=== PATIENT | female | born 1960 | race African-American/Black ===

== ENCOUNTER 2017-08-06 10:15 | Emergency (ER) | payer MEDICAID, OTHER ==
[~2017-08-06] VITALS: Ht 172.7 cm; Wt 56.7 kg
--- NOTE | 2017-08-06 10:21 | Emergency Room Report ---
History of Present Illness General Chief Complaint: Syncope Source: Patient, EMS Present Illness HPI The patient jumped up on her kitchen sink to urinate because of problems with plumbing. She passed out and hit the right side of her head. There is bleeding from her face. Some time elapsed before she called for paramedics. She watched a movie in between. She went and saw herself in the mirror and saw the cut on her face and became anxious. She then called paramedics. Paramedics performed orthostatic vital signs which were negative. The patient denies passing out before. Pain in face is either denied or 5/10 and sharp, not radiating. No change in vision. Was evaluated by PMD last week with labs. They had problems drawing her blood. She does not know the results. Scheduled to have wisdom teeth removed. Stressed about this. She denies psychiatric issues. No fevers, chills, NVD. She did not eat this morning. No change in bowels, dysuria. She states tetanus UTD. She is treated for chronic pain from arthritis. Allergies: Coded Allergies: No Known Allergies (Unverified , 08/06/17) Patient History Past Medical History: see triage record Social History: Denies: smoking, alcohol use, drug use Social History Narrative at home "mansion" but needing work Last Menstrual Period: na Reviewed Nursing Documentation: PMH: Agreed, PSxH: Agreed Nursing Documentation-PMH Past Medical History: No History, Except For Review of Systems All Other Systems: negative except mentioned in HPI Physical Exam Vital Signs Date Time Temp Pulse Resp B/P (MAP) Pulse Ox O2 Delivery O2 Flow Rate FiO2 08/06/17 10:09 98.8 74 14 122/84 98 Room Air Sp02 EP Interpretation: reviewed, normal General Appearance: well appearing, no apparent distress, GCS 15 Head: normocephalic, other - 2.5 cm lac R eyebrow Eyes: bilateral eye normal inspection, bilateral eye PERRL, bilateral eye EOMI ENT: normal pharynx, moist mucus membranes - no lingual macerations Neck: full range of motion, no meningismus, no bony tend Respiratory: chest non-tender, lungs clear, normal breath sounds Cardiovascular #1: regular rate, rhythm Cardiovascular #2: 2+ radial (R) Gastrointestinal: normal inspection, normal bowel sounds, non tender, no mass, non-distended Musculoskeletal: back normal, gait/station normal, normal range of motion Neurologic: alert, oriented x3, registered nurse obstetrics III-XII nml as tested, motor strength/tone normal, DTRs symmetric, sensory intact, cerebellar normal, normal gait, speech normal Psychiatric: no suicidal/homicidal ideation, other - strange affect Skin: warm/dry, laceration - deep through eyebrow, into muscle Procedures Laceration/Wound Repair Laceration/Wound Repair : Consent: Verbal Wound Location: face Wound's Depth, Shape: into muscle, linear Wound Length (cm): 3 Wound Explored: clean Betadine Prep?: Yes Anesthesia: Lidocaine w/ Epi Wound Debrided: None Wound Repaired With: sutures Suture Size/Type: 6:0 Layer Closure?: Yes Deep Layer Suture Size/Type: 6:0, other - vicryl Sterile Dressing Applied?: Yes Patient Tolerated: Well Complications: None Progress After prep, anesthetic, wound irrigated. Muscle layer approximated. Irrigated. Subcuticular approximated. Irrigated. Dermal layer closed with cosmetic approximation and alignment of eyebrow. Parvin well. Medical Decision Making Diagnostic Impression: Primary Impression: Syncope Qualified Codes: R55 - Syncope and collapse Additional Impressions: Complex right eyebrow laceration repair UTI (urinary tract infection) Qualified Codes: N30.00 - Acute cystitis without hematuria ER Course Patient with syncope and R eyebrow laceration. DDX: arrhythmia, vasovagal, AMI amongst others. Emergent evaluation with CT, EKG, CXR and labs. She will need sutures. She denies pain at this time. EKG no injury, CXR asthenia, labs unremarkable except for UTI. Patient started on macrobid. Sutured - complex laceration and cosmetic repair. Strange affect, but not delusional or SI. The patient is refusing admission. She states she needs to see her chronic pain doctor. She understands the seriousness of being observed for unknown cause for syncope. I told her that there is a risk of her due to arrhythmia or heart attack. She understands this and is insisting on going home. Patient discharged, improved. Vital stable. Laboratory Tests Test 08/06/17 10:38 08/06/17 11:23 08/06/17 14:23 White Blood Count 7.1 K/UL (4.8-10.8) Red Blood Count 4.85 M/UL (4.20-5.40) Hemoglobin 13.8 G/DL (12.0-16.0) Hematocrit 44.8 % (37.0-47.0) Mean Corpuscular Volume 92 FL (80-99) Mean Corpuscular Hemoglobin 28.4 PG (27.0-31.0) Mean Corpuscular Hemoglobin Concent 30.8 G/DL (32.0-36.0) L Red Cell Distribution Width 14.3 % (11.6-14.8) Platelet Count 320 K/UL (150-450) Mean Platelet Volume 6.7 FL (6.5-10.1) Neutrophils (%) (Auto) 60.7 % (45.0-75.0) Lymphocytes (%) (Auto) 30.3 % (20.0-45.0) Monocytes (%) (Auto) 6.6 % (1.0-10.0) Eosinophils (%) (Auto) 1.1 % (0.0-3.0) Basophils (%) (Auto) 1.3 % (0.0-2.0) Prothrombin Time 10.3 SEC (9.30-11.50) Prothrombin Time INR 1.0 (0.9-1.1) PTT 25 SEC (23-33) Sodium Level 144 mEQ/L (135-145) Potassium Level 4.0 mEQ/L (3.4-4.9) Chloride Level 103 mEQ/L (98-107) Carbon Dioxide Level 25 mEQ/L (20-30) Anion Gap 16 (5-15) H Blood Urea Nitrogen 17 mg/dL (7-23) Creatinine 0.8 mg/dL (0.5-0.9) Estimate Glomerular Filtration Rate > 60 mL/min (>60) Glucose Level 74 mg/dL (74-106) Calcium Level 9.7 mg/dL (8.6-10.2) Total Bilirubin 0.3 mg/dL (0.0-1.2) Aspartate Amino Transferase (AST) 27 U/L (5-40) Alanine Aminotransferase (ALT) 13 U/L (3-33) Alkaline Phosphatase 83 U/L (35-104) Total Creatine Kinase 193 U/L (26-140) H Troponin I < 0.30 ng/mL (<=0.30) Pro-B-Type Natriuretic Peptide 13 pg/mL (0-125) Total Protein 8.1 g/dL (6.6-8.7) Albumin 5.0 g/dL (3.5-5.2) Globulin 3.1 g/dL Albumin/Globulin Ratio 1.6 (1.0-2.7) Urine Color Yellow Urine Appearance Cloudy Urine pH 5 (4.5-8.0) Urine Specific [place] 1.025 (1.005-1.035) Urine Protein 1+ (NEGATIVE) H Urine Glucose (UA) Negative (NEGATIVE) Urine Ketones 4+ (NEGATIVE) H Urine Occult Blood 1+ (NEGATIVE) H Urine Nitrite Positive (NEGATIVE) H Urine Bilirubin Negative (NEGATIVE) Urine Urobilinogen Normal MG/DL (0.0-1.0) Urine Leukocyte Esterase 3+ (NEGATIVE) H Urine RBC 5-10 /HPF (0 - 2) H Urine WBC 20-30 /HPF (0 - 2) H Urine Squamous Epithelial Cells Moderate /LPF (NONE/OCC) H Urine Bacteria Many /HPF (NONE) H Urine Opiates Screen Negative (NEGATIVE) Urine Barbiturates Screen Negative (NEGATIVE) Phencyclidine (PCP) Screen Negative (NEGATIVE) Urine Amphetamines Screen Negative (NEGATIVE) Urine Benzodiazepines Screen Negative (NEGATIVE) Urine Cocaine Screen Positive (NEGATIVE) H Urine Marijuana (THC) Screen Negative (NEGATIVE) EKG Diagnostic Results Rate: normal Rhythm: NSR ST Segments: no acute changes Rhythm Strip Diag. Results EP Interpretation: yes Rhythm: NSR, no PVC's, no ectopy Chest X-Ray Diagnostic Results Chest X-Ray Diagnostic Results : Chest X-Ray Ordered: Yes # of Views/Limited/Complete: 1 View Indication: Other EP Interpretation: Yes Interpretation: no consolidation, no effusion, no pneumothorax Impression: No acute disease Electronically Signed by: Ilir Stokes MD CT/MRI/US Diagnostic Results CT/MRI/US Diagnostic Results : Imaging Test Ordered: head Impression no bleed Last Vital Signs Date Time Temp Pulse Resp B/P (MAP) Pulse Ox O2 Delivery O2 Flow Rate FiO2 08/06/17 16:00 70 17 125/65 99 Room Air 08/06/17 14:30 98.3 Status: improved Disposition: HOME, SELF-CARE - refusal of admission - risks explained to patient of leaving Condition: Improved Scripts Bacitracin (Bacitracin) 28.4 Gm Oint...g. 1 APPLIC TOPIC BID, #10 GM Prov: Ilir Stokes M.D. 08/06/17 Nitrofurantoin Monohyd/M-Cryst* (MACROBID 100 MG*) 100 Mg Capsule 100 MG ORAL EVERY 12 HOURS, #14 CAP Prov: Ilir Stokes M.D. 08/06/17 Ilir Stokes M.D. Aug 06, 2017 10:21
[2017-08-06] MEDS ORDERED: Bacitracin Oint UD TOPIC ONE (10:30)
[2017-08-06] MEDS ORDERED: Lidocaine 1% 10mg/ml/Epi 0.005mg/ml 30ml vial INJ ONE (10:30)
[2017-08-06 10:56] LABS: BASOPHILS % (AUTO) 1.3 % (0.0-2.0); EOSINOPHILS % (AUTO) 1.1 % (0.0-3.0); LYMPHOCYTES % (AUTO) 30.3 % (20.0-45.0); MEAN CORPUSCULAR HEMOGLOBIN 28.4 PG (27.0-31.0); MEAN CORPUSCULAR HGB CONC 30.8 G/DL (32.0-36.0); MEAN CORPUSCULAR VOLUME 92 FL (80-99); MEAN PLATELET VOLUME 6.7 FL (6.5-10.1); MONOCYTES % (AUTO) 6.6 % (1.0-10.0); NEUTROPHILS % (AUTO) 60.7 % (45.0-75.0); PLATELET COUNT 320 K/UL (150-450); RED BLOOD COUNT 4.85 M/UL (4.20-5.40); RED CELL DISTRIBUTION WIDTH 14.3 % (11.6-14.8); WHITE BLOOD COUNT 7.1 K/UL (4.8-10.8)
--- NOTE | 2017-08-06 11:00 | Diagnostic Imaging Report ---
Indication: Trauma Comparison: None Technique: Contiguous helical CT images through the brain was performed without intravenous contrast. Axial, coronal and sagittal reconstructions were reformatted. CT dose: Total DLP 1245 mGycm, CTDI volume 70.4 mGy Findings: There is no acute intracranial hemorrhage or infarct. No mass, mass effect or midline shift is identified. Ventricles and sulci are within normal limits. No extra-axial fluid collections are seen. Bony calvarium is intact. Mastoid air cells and visualized paranasal sinuses are clear. Impression: No acute intracranial abnormalities. The CT scanner at [facility] is accredited by the [employer] and the scans are performed using protocols designed to limit radiation exposure to as low as reasonably achievable to attain images of sufficient resolution adequate for diagnostic evaluation.
--- NOTE | 2017-08-06 11:07 | Diagnostic Imaging Report ---
Indication: SYNCOPE Comparison: None Findings: Single view of the chest shows a normal cardiomediastinal silhouette. Pulmonary vasculature is normal. Lung are clear. Soft tissues and osseous structures are within normal limits. Impression: Normal chest
[2017-08-06 12:00] LABS: PROTHROMBIN TIME 10.3 SEC (9.30-11.50)
[2017-08-06 12:10] LABS: ALANINE AMINOTRANSFERASE 13 U/L (3-33); ALBUMIN/GLOBULIN RATIO 1.6 (1.0-2.7); ANION GAP 16 (5-15); ASPARTATE AMINO TRANSFERASE 27 U/L (5-40); CALCIUM 9.7 mg/dL (8.6-10.2); CARBON DIOXIDE 25 mEQ/L (20-30); CHLORIDE 103 mEQ/L (98-107); CREATININE 0.8 mg/dL (0.5-0.9); GLOMERULAR FILTRATION RATE > 60 mL/min (>60); HEMOLYSIS 2; SODIUM 144 mEQ/L (135-145); TOTAL PROTEIN 8.1 g/dL (6.6-8.7); TROPONIN I < 0.30 ng/mL (<=0.30)
[2017-08-06 12:25] VITALS: BP 121/62
[2017-08-06 14:30] VITALS: BP 118/59
[2017-08-06 14:51] LABS: APPEARANCE,URINE CLOUDY; KETONES,URINE 4+ (NEGATIVE); LEUKOCYTE ESTERASE ,URINE 3+ (NEGATIVE); NITRITE,URINE POSITIVE (NEGATIVE); PH,URINE 5 (4.5-8.0); PROTEIN,URINE 1+ (NEGATIVE); UROBILINOGEN,URINE NORMAL MG/DL (0.0-1.0)
[2017-08-06 15:09] LABS: WBC,URINE 20-30 /HPF (0 - 2)
[2017-08-06 15:10] LABS: BACTERIA,URINE MANY /HPF; SQUAMOUS EPITHELIAL CELL,UR MODERATE /LPF (NONE/OCC)
[2017-08-06] MEDS ORDERED: BACITRACIN15 GM TOPIC (15:41)
[2017-08-06] MEDS ORDERED: NITROFURANTOIN100 M2 ORAL (15:41)
[2017-08-06 16:00] VITALS: BP 125/65
--- NOTE | 2017-08-07 19:16 | Cardiology Report ---
APPROVED REPORT EKG Measurement Heart [id number] Normal sinus rhythm Possible Left atrial enlargement Prolonged QT Abnormal ECG
== END 2017-08-06 17:21 | disposition home or self-care (01) ==
LOC: EDBD 10:15 → EMR 10:27
DX: R55 Syncope and collapse (principal); S01.111A Laceration without foreign body of right eyelid and periocular area, initial encounter; W19.XXXA Unspecified fall, initial encounter; Y92.89 Other specified places as the place of occurrence of the external cause; N39.0 Urinary tract infection, site not specified
CPT/HCPCS: 13131; 36415; 70450; 71010; 80053; 80300; 81003; 82550; 83880; 84484; 85025; 85610; 85730; 87086; 87181; 93005; 96360; 99284; Z7502

== ENCOUNTER 2017-08-20 10:01 | Emergency (ER) | payer OTHER ==
[~2017-08-20] VITALS: Ht 172.7 cm; Wt 56.7 kg
[~2017-08-20 10:01] MED LIST: BACITRACIN15 GM TOPIC; NITROFURANTOIN100 M2 ORAL
[2017-08-20 10:12] VITALS: BP 115/85
--- NOTE | 2017-08-20 10:47 | Emergency Room Report ---
History of Present Illness General Chief Complaint: Wound Recheck/Suture Removal Source: Patient, Medical Record Present Illness HPI Patient presents for evaluation of the right facial stitches that were placed approximately 2 weeks ago Patient denies any headache denies any chest pain or short of breath She feels that the area is feeling better and denies any redness or discharge Allergies: Coded Allergies: No Known Allergies (Unverified , 08/06/17) Patient History Past Medical History: see triage record Pertinent Family History: none Reviewed Nursing Documentation: PMH: Agreed, PSxH: Agreed Nursing Documentation-PMH Past Medical History: No History, Except For Review of Systems All Other Systems: negative except mentioned in HPI Physical Exam Vital Signs Date Time Temp Pulse Resp B/P (MAP) Pulse Ox O2 Delivery O2 Flow Rate FiO2 08/20/17 10:12 98.2 77 14 115/85 98 Room Air Sp02 EP Interpretation: reviewed, normal General Appearance: well appearing, no apparent distress Head: normocephalic, atraumatic Eyes: bilateral eye PERRL, bilateral eye EOMI ENT: hearing grossly normal, normal pharynx Neck: full range of motion Respiratory: lungs clear Cardiovascular #1: regular rate, rhythm Gastrointestinal: non tender, soft Musculoskeletal: normal inspection Neurologic: alert, oriented x3, responsive Skin: other - Sutures in place in the right lateral eyebrow area, the area appears to be healing well no signs of any dehiscence mild ecchymosis persisted in the lower eyelid, Lymphatic: no adenopathy Medical Decision Making Diagnostic Impression: Primary Impression: Encounter for removal of sutures ER Course The area appears to be healing well Sutures appear to be ready to be removed In the appropriate fashion they interrupted sutures were removed without any dehiscence the patient tolerated well And stable for close followup Last Vital Signs Date Time Temp Pulse Resp B/P (MAP) Pulse Ox O2 Delivery O2 Flow Rate FiO2 08/20/17 10:12 98.2 77 14 115/85 98 Room Air Status: improved Disposition: HOME, SELF-CARE Condition: Improved Referrals: NIESHA FARRAR,REFERRING (PCP) Patient Instructions: Wound Check, Suture Removal, Care After Additional Instructions: Patient is provided with the discharge instructions notified to follow up with primary doctor in the next 2-3 days otherwise return to the er with any worsening symptoms. Please note that this report is being documented using [employer] technology. This can lead to erroneous entry secondary to incorrect interpretation by the dictating instrument. SAM IBRAHIM D.O. Aug 20, 2017 10:47
[2017-08-20 11:15] VITALS: BP 115/85
== END 2017-08-20 10:48 | disposition home or self-care (01) ==
LOC: EMR 10:16
DX: Z48.02 Encounter for removal of sutures (principal)
CPT/HCPCS: 99281

== ENCOUNTER 2018-09-10 15:02 | Emergency (ER) | payer OTHER ==
[~2018-09-10] VITALS: Ht 172.7 cm; Wt 55.8 kg
[2018-09-10] MEDS ORDERED: Acetaminophen 500mg (ES) tab ORAL ONE (15:30)
[2018-09-10] MEDS ORDERED: Tetanus/Diptheria/Pertussis Vaccine 0.5ml Syr IM ONE (15:30)
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
[2018-09-10 15:49] VITALS: BP 121/82
[2018-09-10] MEDS ORDERED: NKM (15:55)
--- NOTE | 2018-09-10 16:27 | Diagnostic Imaging Report ---
Indication: Headache Technique: Contiguous 5 mm thick transaxial imaging of the head obtained in a Siemens Sensation [address] scanner. Soft tissue and bone windows generated. Automatic Exposure Control was utilized. Total Dose length Product (DLP): 1906.[address] Dose Index Volume (CTDIvol): 70.38,28.19 mGy Comparison: 08/06/2017 Findings: There is mild prominence of the ventricles, basal cisterns, and cerebral sulci consistent with atrophy. Mild, nonspecific, white matter hypoattenuation is noted throughout the brain consistent with chronic small vessel disease. There is no midline shift, edema, acute hemorrhage, mass effect, or abnormal extra-axial fluid collections. Bones and extra osseous soft tissues are unremarkable. Impression: No acute intracranial bleed, mass effect or edema. Mild atrophy of the brain. Nonspecific white matter hypoattenuation probably due to chronic small vessel disease. The CT scanner at [facility] is accredited by the [employer] and the scans are performed using dose optimization techniques as appropriate to a performed exam including Automatic Exposure control.
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
[2018-09-10] MEDS ORDERED: Norco 5mg/325mg tab ORAL ONE (17:00)
[2018-09-10] MEDS ORDERED: ACETAMINOPHEN-1 EAC1 ORAL (17:23)
[2018-09-10] MEDS ORDERED: BACITRACIN-P28.35 GM TP (17:23)
[2018-09-10 17:41] VITALS: BP 124/79
[2018-09-10 17:48] VITALS: BP 124/79
== END 2018-09-10 17:49 | disposition home or self-care (01) ==
LOC: EMR 15:29
DX: S02.32XA Fracture of orbital floor, left side, initial encounter for closed fracture (principal); S02.40FA Zygomatic fracture, left side, initial encounter for closed fracture; S02.2XXA Fracture of nasal bones, initial encounter for closed fracture; Y04.2XXA Assault by strike against or bumped into by another person, initial encounter; Y92.9 Unspecified place or not applicable; Z23 Encounter for immunization
CPT/HCPCS: 70450; 70486; 90471; 90715; 99284

== ENCOUNTER 2019-01-12 11:30 | Emergency (ER) | payer OTHER ==
[~2019-01-12] VITALS: Ht 172.7 cm; Wt 56.7 kg
[~2019-01-12 11:30] MED LIST changes: +ACETAMINOPHEN-1 EAC1 ORAL; +BACITRACIN-P28.35 GM TP; +NKM
--- NOTE | 2019-01-12 11:55 | NUR ---
EKG WAS DONE, ORIGINAL WAS GIVEN TO , NO ORDER PLACED AT THIS TIME.
[2019-01-12] MEDS ORDERED: Albuterol/Ipratropium 3ml neb HHN ONE (12:00)
[2019-01-12 12:14] VITALS: BP 141/73
--- NOTE | 2019-01-12 12:16 | NUR ---
ED Nurse Note: pt walked in to ER as c/o SOB. wheezing noted upon exhalation. pt aao x4, ambulatory, skin clean and intact.
[2019-01-12] MEDS ORDERED: ALBUTEROL SULF8.5 GM INH (13:40)
[2019-01-12] MEDS ORDERED: PREDNISONE20 MG ORAL (13:40)
[2019-01-12 13:58] VITALS: BP 141/73
--- NOTE | 2019-01-12 14:00 | NUR ---
ER DISCHARGE NOTE: Patient is cleared to be discharged per ERMD, pt is aox4, on room air, with stable vital signs. pt was given dc and prescription instructions, pt was able to verbalize understanding, pt id band removed. pt is able to ambulate with steady gait. pt took all belongings.
--- NOTE | 2019-01-12 22:01 | Emergency Room Report ---
History of Present Illness General Chief Complaint: Upper Respiratory Illness Source: Patient Present Illness HPI Patient is a 58-year-old female presented after increased cough and difficulty breathing. Patient reported having increased nonproductive cough. She had associated increased nasal congestion. Patient denies prior history of lung disease. She states that she is not a smoker. She denies any prior history of asthma. Patient denies any exertional symptoms. She reports of increased symptoms over the past 3-4 days. Allergies: Coded Allergies: No Known Allergies (Unverified , 08/06/17) Patient History Past Medical History: see triage record Now: No Reviewed Nursing Documentation: PMH: Agreed; PSxH: Agreed Nursing Documentation-PMH Past Medical History: No History, Except For Review of Systems All Other Systems: negative except mentioned in HPI Physical Exam Vital Signs Date Time Temp Pulse Resp B/P (MAP) Pulse Ox O2 Delivery O2 Flow Rate FiO2 01/12/19 11:51 97.5 75 20 133/89 92 Room Air 01/12/19 12:05 21 General Appearance: well appearing, no apparent distress, alert, GCS 15, thin Head: normocephalic, atraumatic ENT: hearing grossly normal, normal voice Neck: full range of motion, supple Respiratory: no respiratory distress, no retraction, no accessory muscle use, speaking full sentences, wheezing Cardiovascular #1: normal peripheral pulses, no edema Gastrointestinal: normal inspection, soft Musculoskeletal: normal inspection, no calf tenderness Neurologic: normal inspection, alert, oriented x3, responsive, normal gait Psychiatric: normal inspection, judgement/insight normal, mood/affect normal Skin: no rash Medical Decision Making Diagnostic Impression: Primary Impression: COPD exacerbation ER Course Patient presented for cough. Differential diagnosis included but was not limited to bronchitis, pneumonia, pulmonary embolism, pericarditis, asthma, foreign body. X-ray imaging of the chest read by radiology showed showed no evident infiltrate with normal cardiac size. Patient given breathing treatment with improvement in her symptoms. Patient was given prescription for inhalers as well as oral steroids.. Last Vital Signs Date Time Temp Pulse Resp B/P (MAP) Pulse Ox O2 Delivery O2 Flow Rate FiO2 01/12/19 13:58 98.2 91 20 141/73 100 Room Air 21 Status: improved Disposition: HOME, SELF-CARE Condition: Stable Scripts Prednisone* (PREDNISONE*) 20 Mg Tablet 40 MG ORAL DAILY, #10 TAB Prov: Juan Carlos Petit MD 01/12/19 Albuterol Sulfate* (ALBUTEROL SULFATE MDI*) 8.5 Gm Hfa.aer.ad 2 PUFF INH Q6H, #1 INH 0 Refills Prov: Juan Carlos Petit MD 01/12/19 Referrals: NIESHA FARRAR,REFERRING (PCP) Patient Instructions: Chronic Obstructive Pulmonary Disease Juan Carlos Petit MD Jan 12, 2019 22:01
== END 2019-01-12 14:10 | disposition home or self-care (01) ==
LOC: EMR 12:23
DX: R05 Cough (principal); J44.1 Chronic obstructive pulmonary disease with (acute) exacerbation
CPT/HCPCS: 71045; 93005; 94640; 94664; 99284; J7512; J7620

== ENCOUNTER 2020-04-09 00:19 | Inpatient (IN) | payer OTHER ==
[2020-04-09] VITALS (12 sets, daily range): BP systolic 100–139; BP diastolic 73–92
[~2020-04-09] VITALS: Ht 172.7 cm; Wt 57.6 kg
[~2020-04-09 00:19] MED LIST changes: +ALBUTEROL SULF8.5 GM INH; +PREDNISONE20 MG ORAL
--- NOTE | 2020-04-09 00:36 | Emergency Room Report ---
History of Present Illness General Chief Complaint: Abdominal Pain Source: Patient Present Illness HPI This is a 59-year-old female history. She does have a history of cocaine abuse but does not know the last time she used it. She presents with complaint abdominal pain. She told the digital media director the pain was acute onset an hour ago. She told me she been in bed and is been having pain for 5 hours. Pain is diffuse nature. 10 out of 10. Worse with movement. No fever or chills. No nausea vomiting or diarrhea. Never had this problem before. No abdominal surgery. Worse with movement. Better with rest. Allergies: Coded Allergies: No Known Allergies (Unverified , 08/06/17) COVID-19 Screening Contact w/high risk pt: No Recent Travel to affected area: No Experienced COVID-19 symptoms?: No COVID-19 Testing performed STRAP MAKER: No Patient History Past Medical History: see triage record, old chart reviewed Past Surgical History: other Pertinent Family History: none Social History: Reports: smoking, drug use Now: No Immunizations: other Reviewed Nursing Documentation: PMH: Agreed; PSxH: Agreed Review of Systems Eye: Denies: eye pain, blurred vision ENT: Denies: ear pain, nose congestion, throat swelling Respiratory: Denies: cough, shortness of breath Cardiovascular: Denies: chest pain, palpitations Gastrointestinal: Reports: abdominal pain; Denies: diarrhea, nausea, vomiting Musculoskeletal: Denies: back pain, joint pain Skin: Denies: rash Neurological: Denies: headache, numbness Endocrine: Denies: increased thirst, increased urine Hematologic/Lymphatic: Denies: easy bruising All Other Systems: negative except mentioned in HPI Physical Exam Vital Signs Date Time Temp Pulse Resp B/P (MAP) Pulse Ox O2 Delivery O2 Flow Rate FiO2 04/09/20 00:20 18 20 98 Room Air Vitals unremarkable Sp02 EP Interpretation: reviewed, normal General Appearance: well appearing, no apparent distress, alert Head: normocephalic, atraumatic Eyes: bilateral eye PERRL, bilateral eye EOMI ENT: hearing grossly normal, normal pharynx Neck: full range of motion, supple, no meningismus Respiratory: chest non-tender, lungs clear, normal breath sounds Cardiovascular #1: regular rate, rhythm, no murmur Gastrointestinal: no mass, no organomegaly, no bruit, non-distended, tenderness - Diffuse pain. Decreased bowel sounds. Musculoskeletal: back normal, normal range of motion, gait/station normal Neurologic: alert, oriented x3 Psychiatric: mood/affect normal Procedures Critical Care Time Critical Care Time Critical care is mandated in this patient who presented with perforated bowel. Patient require my urgent intervention to attenuate the risks of metabolic collapse which may lead to cardiovascular collapse and . Critical care time is 35 minutes excluding any reportable procedure. Critical care time included evaluation, multiple reevaluation, looking at old charts, interpreting laboratory and diagnostic data, discussing case with patient and family and consultants, and charting. Medical Decision Making Diagnostic Impression: Primary Impression: Perforated small intestine Additional Impressions: Duodenal ulcer Cocaine abuse ER Course Patient presents with free air. This is probably a perforated bowel from a duodenal ulcer. She is hemodynamically stable at this moment in time. IV fluids given. Antibiotics given. CT scan also showed distended gallbladder. LFTs are normal however. I paged the surgeon Dr. Tan. Rhythm Strip Diag. Results EP Interpretation: yes Rate: 71 Rhythm: NSR, no PVC's, no ectopy CT/MRI/US Diagnostic Results CT/MRI/US Diagnostic Results : Imaging Test Ordered: CT abdomen pelvis Impression Read by radiologist. Multi foci of free air within the abdomen. Suspicious for bowel perforation. Exact source is not definitively identified. However duodenum appears somewhat heterogeneous and may be a potential source. Distended gallbladder. Asymmetry of density of left breast tissue versus right. Last Vital Signs Date Time Temp Pulse Resp B/P (MAP) Pulse Ox O2 Delivery O2 Flow Rate FiO2 04/09/20 00:20 18 20 98 Room Air Status: improved Disposition: ADMITTED INPATIENT Condition: Serious Travis Joe MD Apr 09, 2020 00:36
[2020-04-09] MEDS ORDERED: Morphine Sulfate 4mg/ml Inj (IV USE ONLY) IVP ONE (00:45)
[2020-04-09 01:03] LABS: HEMATOCRIT 36.6 % (37.0-47.0); HEMOGLOBIN 12.5 G/DL (12.0-16.0); MEAN CORPUSCULAR VOLUME 87 FL (80-99); PLATELET COUNT 312 K/UL (150-450); RED BLOOD COUNT 4.22 M/UL (4.20-5.40); RED CELL DISTRIBUTION WIDTH 14.3 % (11.6-14.8); WHITE BLOOD COUNT 15.7 K/UL (4.8-10.8)
[2020-04-09 01:13] LABS: ANION GAP 12 mmol/L (5-15); BLOOD UREA NITROGEN 24 mg/dL (7-18); CALCIUM 8.7 MG/DL (8.5-10.1); CARBON DIOXIDE 25 MMOL/L (21-32); CHLORIDE 106 MMOL/L (98-107); CREATININE 1.1 MG/DL (0.55-1.30); POTASSIUM 3.9 MMOL/L (3.5-5.1); SODIUM 143 MMOL/L (136-145)
[2020-04-09 01:17] LABS: ALANINE AMINOTRANSFERASE 25 U/L (12-78); ALBUMIN 3.7 G/DL (3.4-5.0); ALBUMIN/GLOBULIN RATIO 1.1 (1.0-2.7); ALKALINE PHOSPHATASE 78 U/L (46-116); ASPARTATE AMINO TRANSFERASE 23 U/L (15-37); BILIRUBIN,TOTAL 0.5 MG/DL (0.2-1.0)
--- NOTE | 2020-04-09 01:59 | Diagnostic Imaging Report ---
EXAM: CT Abdomen and Pelvis Without Intravenous Contrast CLINICAL HISTORY: ABD PAIN TECHNIQUE: Axial computed tomography images of the abdomen and pelvis without intravenous contrast. CTDI is 4 mGy and DLP is 208 mGy-cm. One or more of the following dose reduction techniques were used: automated exposure control, adjustment of the mA and/or kV according to patient size, use of iterative reconstruction technique. COMPARISON: No relevant prior studies available. FINDINGS: Lung bases: No mass. No consolidation. ABDOMEN: Liver: Unremarkable. Gallbladder and bile ducts: Distended gallbladder with dilated CBD measuring 11 mm.. Pancreas: No ductal dilation. Spleen: Unremarkable. Adrenals: Unremarkable. Kidneys and ureters: No obstructing stones. No hydronephrosis. Stomach and bowel: No bowel obstruction. No bowel wall thickening. Mild hiatal hernia. Heterogeneous appearance of the proximal duodenum. PELVIS: Appendix: No evidence of appendicitis. Bladder: No stones. Reproductive: Unremarkable. ABDOMEN and PELVIS: Intraperitoneal space: Multiple foci of free air within the abdomen. Mild volume of Mildly dense free fluid.. Bones/joints: No acute fractures. Soft tissues: Asymmetrically more dense left breast tissue. Vasculature: No abdominal aortic aneurysm. Lymph nodes: No enlarged lymph nodes. IMPRESSION: 1. Multiple foci of free air in the abdomen. Mild volume of mildly dense free fluid. Suspicious for bowel perforation. Exact source is not definitively identified. However the duodenum appears somewhat heterogeneous and may be a potential source. 2. Distended gallbladder and dilated CBD. Recommend right upper quadrant ultrasound. 3. Incidental note of asymmetrically more dense left breast tissue which is only partially visualized. Correlate with outpatient mammography/ultrasound. <MYCVCSECTION> Communications: 04/09/20 02:03 Call Doctor Regarding Above results, called Raoul LEARY on 04/09 02:03 (-07:00)
[2020-04-09] MEDS ORDERED: Pantoprazole Inj IVP ONE (02:15)
[2020-04-09] MEDS ORDERED: HYDROmorphone 1mg/ml Carpuject IVP ONE (02:15)
[2020-04-09] MEDS ORDERED: Piperacillin/Tazobactam 3.375 GM in NS 110 ML IVPB ONE ×2 (02:15→09:00)
[2020-04-09 02:50] LABS: BILIRUBIN, URINE NEGATIVE (NEGATIVE); GLUCOSE, URINE (UA) NEGATIVE (NEGATIVE); KETONES,URINE 2+ (NEGATIVE); LEUKOCYTE ESTERASE ,URINE 3+ (NEGATIVE); NITRITE,URINE POSITIVE (NEGATIVE); PH,URINE 5 (4.5-8.0); PROTEIN,URINE 1+ (NEGATIVE); UROBILINOGEN,URINE NORMAL MG/DL (0.0-1.0)
[2020-04-09 03:01] LABS: APPEARANCE,URINE SLIGHTLY CLOUDY; COLOR,URINE YELLOW
[2020-04-09] MEDS ORDERED: Morphine Sulfate 2mg/ml Inj(IV/IM USE ONLY) IVP PRN (05:45)
[2020-04-09] MEDS: Morphine Sulfate 4mg/ml Inj (IV USE ONLY) IVP PRN ×2 (06:26→09:40)
[2020-04-09] MEDS ORDERED: Sterile Water Irrig 1000ml IRRIG ONE (07:00)
[2020-04-09] MEDS ORDERED: NS Irrig 1000ml ONE (07:00)
[2020-04-09] MEDS ORDERED: Succinylcholine 20mg/ml 10ml vial ONE (07:37)
[2020-04-09] MEDS ORDERED: Lidocaine 1% MPF 10mg/ml 5ml ONE (08:55)
[2020-04-09] MEDS ORDERED: Glycopyrrolate 0.2mg/ml 1ml Vial ONE (09:00)
[2020-04-09] MEDS ORDERED: Metoclopramide 10mg/2ml Inj ONE (09:00)
[2020-04-09] MEDS ORDERED: Neostigmine 1mg/ml 10ml Inj ONE (09:00)
[2020-04-09] MEDS ORDERED: LR 1000ml ONE (09:00)
[2020-04-09] MEDS: Piperacillin/Tazobactam 3.375 GM in NS 110 ML IVPB SCH ×2 (09:38→17:44)
[2020-04-09] MEDS: Pantoprazole Inj IVP SCH (09:38)
--- NOTE | 2020-04-09 09:44 | Consultation ---
History of Present Illness General Date patient seen: Apr 09, 2020 Reason for Hospitalization: Abdominal Pain Present Illness HPI This is a 59-year-old female with no prior known history but does have have a history of cocaine abuse unknown last time she used it who presents with complaint acute abdominal pain x 1 day. She told the director hris the pain was acute onset an hour ago prior to arrival to ED but told ED physician she been in bed and is been having pain for 5 hours. Pain is diffuse nature. 10 out of 10. Worse with movement. No fever or chills. No nausea vomiting or diarrhea. Never had this problem before. No abdominal surgery. Worse with movement. Better with rest. abnormal labs. CT with perforated viscus. surgery called to evaluate. patient seen, chart reviewed, patient examined. to me she states pain is possibly 1 day old but unsure. acute on set. 08/15. no n/v/f/c. Allergies: Coded Allergies: No Known Allergies (Unverified , 08/06/17) COVID-19 Screening Contact w/high risk pt: No Recent Travel to affected area: No Experienced COVID-19 symptoms?: No Medication History Scheduled Albuterol Sulfate* (Albuterol Sulfate Mdi*), 2 PUFF INH Q6H Bacitracin (Bacitracin), 1 APPLIC TOPIC BID Bacitracin/Polymyxin B Sulfate (Bacitracin-Polymyxin Ointment), 1 APPLIC TP BID Nitrofurantoin Monohyd/M-Cryst* (Macrobid 100 Mg*), 100 MG ORAL EVERY 12 HOURS No Known Medications* (NKM - No Known Medications*), 0 ., (Reported) Prednisone* (Prednisone*), 40 MG ORAL DAILY Scheduled PRN Acetaminophen With Codeine (T#3) (Tylenol #3 Tab*), 1 TAB ORAL Q6HR PRN for For Pain Patient History History Provided By: Patient Healthcare decision maker Resuscitation status Advanced Directive on File Past Medical/Surgical History Past Medical/Surgical History: (1) Syncope (2) Encounter for removal of sutures (3) COPD exacerbation (4) Duodenal ulcer (5) Cocaine abuse (6) UTI (urinary tract infection) (7) Perforated small intestine Review of Systems Review of Symptoms General ROS: no weight loss or fever Psychological ROS: no depression or mood changes, no memory loss Ophthalmic ROS: no visual changes or eye irritation ENT ROS: no nasal congestion, hearing loss, dizziness Allergy and Immunology ROS: no allergic symptoms or urticaria Hematological and Lymphatic ROS: no swollen glands, unusual bleeding or bruising Endocrine ROS: no polyuria, polydipsia, weight changes, temperature intolerance Respiratory ROS: no cough, shortness of breath, or wheezing Cardiovascular ROS: no chest pain or dyspnea on exertion Gastrointestinal ROS: abdominal pain, bright red blood in stool. Musculoskeletal ROS: no myalgias or arthralgias Neurological ROS: no TIA or stroke symptoms Dermatological ROS: no new or changing skin lesions, rashes or pruritis Physical Exam Physical Exam General appearance: alert, cooperative, no distress, appears stated age Head: Normocephalic, without obvious abnormality, atraumatic Eyes: conjunctivae/corneas clear. PERRL, EOM's intact. Fundi benign Throat: Lips, mucosa, and tongue normal. Teeth and gums normal Neck: supple, symmetrical, trachea midline, no adenopathy, thyroid: not enlarged, symmetric, no tenderness/mass/nodules, no carotid bruit and no JVD Lungs: clear to auscultation bilaterally Heart: regular rate and rhythm, S1, S2 normal, no murmur, click, rub or gallop Abdomen: soft, tender. Bowel sounds normal. No masses, no organomegaly distended Extremities: extremities normal, atraumatic, no cyanosis or edema Pulses: 2+ and symmetric Skin: Skin color, texture, turgor normal. No rashes or lesions Neurologic: Grossly normal Last 24 Hour Vital Signs Date Time Temp Pulse Resp B/P (MAP) Pulse Ox O2 Delivery O2 Flow Rate FiO2 04/09/20 08:00 97.8 79 18 137/85 (102) 94 04/09/20 06:52 97.5 04/09/20 05:03 97.5 70 18 126/92 (103) 96 04/09/20 05:02 Room Air 04/09/20 04:28 98.1 67 15 126/73 98 Room Air 04/09/20 00:53 98.3 61 23 112/80 97 Room Air 04/09/20 00:53 61 23 Room Air 04/09/20 00:20 18 20 98 Room Air Intake and Output 04/08/20 04/09/20 19:00 07:00 Intake Total 1210 ml Output Total 200 ml Balance 1010 ml Intake Oral 0 ml IV Total 1210 ml Output Urine Total 200 ml Laboratory Tests Test 04/09/20 00:50 04/09/20 00:52 White Blood Count 15.7 K/UL (4.8-10.8) H Red Blood Count 4.22 M/UL (4.20-5.40) Hemoglobin 12.5 G/DL (12.0-16.0) Hematocrit 36.6 % (37.0-47.0) L Mean Corpuscular Volume 87 FL (80-99) Mean Corpuscular Hemoglobin 29.5 PG (27.0-31.0) Mean Corpuscular Hemoglobin Concent 34.1 G/DL (32.0-36.0) Red Cell Distribution Width 14.3 % (11.6-14.8) Platelet Count 312 K/UL (150-450) Mean Platelet Volume 6.3 FL (6.5-10.1) L Neutrophils (%) (Auto) % (45.0-75.0) Lymphocytes (%) (Auto) % (20.0-45.0) Monocytes (%) (Auto) % (1.0-10.0) Eosinophils (%) (Auto) % (0.0-3.0) Basophils (%) (Auto) % (0.0-2.0) Sodium Level 143 MMOL/L (136-145) Potassium Level 3.9 MMOL/L (3.5-5.1) Chloride Level 106 MMOL/L (98-107) Carbon Dioxide Level 25 MMOL/L (21-32) Anion Gap 12 mmol/L (5-15) Blood Urea Nitrogen 24 mg/dL (7-18) H Creatinine 1.1 MG/DL (0.55-1.30) Estimat Glomerular Filtration Rate > 60 mL/min (>60) Glucose Level 133 MG/DL (74-106) H Calcium Level 8.7 MG/DL (8.5-10.1) Total Bilirubin 0.5 MG/DL (0.2-1.0) Aspartate Amino Transf (AST/SGOT) 23 U/L (15-37) Alanine Aminotransferase (ALT/SGPT) 25 U/L (12-78) Alkaline Phosphatase 78 U/L (46-116) Total Protein 7.1 G/DL (6.4-8.2) Albumin 3.7 G/DL (3.4-5.0) Globulin 3.4 g/dL Albumin/Globulin Ratio 1.1 (1.0-2.7) Lipase 268 U/L (73-393) Urine Color Yellow Urine Appearance Slightly cloudy Urine pH 5 (4.5-8.0) Urine Specific [place] 1.025 (1.005-1.035) Urine Protein 1+ (NEGATIVE) H Urine Glucose (UA) Negative (NEGATIVE) Urine Ketones 2+ (NEGATIVE) H Urine Blood 1+ (NEGATIVE) H Urine Nitrite Positive (NEGATIVE) H Urine Bilirubin Negative (NEGATIVE) Urine Urobilinogen Normal MG/DL (0.0-1.0) Urine Leukocyte Esterase 3+ (NEGATIVE) H Urine RBC 2-4 /HPF (0 - 2) H Urine WBC 30-40 /HPF (0 - 2) H Urine Squamous Epithelial Cells Few /LPF (NONE/OCC) Urine Bacteria Many /HPF (NONE) H Urine Opiates Screen Positive (NEGATIVE) H Urine Barbiturates Screen Negative (NEGATIVE) Phencyclidine (PCP) Screen Negative (NEGATIVE) Urine Amphetamines Screen Negative (NEGATIVE) Urine Benzodiazepines Screen Negative (NEGATIVE) Urine Cocaine Screen Positive (NEGATIVE) H Urine Marijuana (THC) Screen Negative (NEGATIVE) Height (Feet): 5 Height (Inches): 8.00 Weight (Pounds): 127 Medications Current Medications Medications (Trade) Dose Ordered Sig/Con Route PRN Reason Start Time Stop Time Status Last Admin Dose Admin Morphine Sulfate (Morphine Sulfate) 2 mg Q3H PRN IVP For Pain 04/09/20 05:45 04/16/20 05:44 Morphine Sulfate (Morphine Sulfate) 4 mg Q3H PRN IVP Severe Pain (Pain Scale 7-10) 04/09/20 05:45 04/16/20 05:44 04/09/20 06:26 Ondansetron HCl (Zofran) 4 mg Q6H PRN IVP Nausea & Vomiting 04/09/20 05:45 05/09/20 05:44 Pantoprazole (Protonix) 40 mg DAILY IVP 04/09/20 09:00 05/09/20 08:59 Piperacillin Sod/ Tazobactam Sod 3.375 gm/Sodium Chloride 110 ml @ 27.5 mls/hr Q8H IVPB 04/09/20 10:00 04/16/20 09:59 Sodium Chloride 1,000 ml @ 100 mls/hr Q10H IV 04/09/20 09:15 05/09/20 09:14 Assessment/Plan Problem List: (1) Duodenal ulcer Assessment & Plan: 1. Multiple foci of free air in the abdomen. Mild volume of mildly dense free fluid. Suspicious for bowel perforation. Exact source is not definitively identified. However the duodenum appears somewhat heterogeneous and may be a potential source. 2. Distended gallbladder and dilated CBD. Recommend right upper quadrant ultrasound. 3. Incidental note of asymmetrically more dense left breast tissue which is only partially visualized. Correlate with outpatient mammography/ultrasound. ICD Codes: K26.9 - Duodenal ulcer, unspecified as acute or chronic, without hemorrhage or perforation SNOMED: 57223731 (2) Cocaine abuse ICD Codes: F14.10 - Cocaine abuse, uncomplicated SNOMED: 70990282 (3) Syncope ICD Codes: R55 - Syncope and collapse SNOMED: 291575310 (4) UTI (urinary tract infection) ICD Codes: N39.0 - Urinary tract infection, site not specified SNOMED: 52360859 (5) Encounter for removal of sutures ICD Codes: Z48.02 - Encounter for removal of sutures SNOMED: 770136735, 66288527, 020710171 (6) COPD exacerbation ICD Codes: J44.1 - Chronic obstructive pulmonary disease with (acute) exacerbation SNOMED: 285448497 (7) Perforated small intestine Assessment & Plan: 59F acute abdominal pain C Twith free air foci and fluid abd distended, tender generalized leukocytosis npo iv fluids iv abx to OR for exploration likely duodenal ulcer perf CT reviewed discussed in detail with patient consent thank you ICD Codes: K63.1 - Perforation of intestine (nontraumatic) SNOMED: 955739686 Natanael Tan Apr 09, 2020 09:44
--- NOTE | 2020-04-09 09:45 | Pre-Procedure Note/Attestation ---
Pre-Procedure Note/Attestation Complete Prior to Procedure Planned Procedure: not applicable Procedure Narrative: exploratory laparotomy, possible bowel resection, possible ostomy, possible cholecystectomy Indications for Procedure Pre-Operative Diagnosis: acute abdomen, perforated viscus, distended gallbladder Attestation I attest that I discussed the nature of the procedure; its benefits; risks and complications; and alternatives (and the risks and benefits of such alternatives ), prior to the procedure, with the patient (or the patient's legal title insurance sales representative). I attest that, if there was a reasonable possibility of needing a blood transfusion, the patient (or the patient's legal title insurance sales representative) was given the [facility] standardized written summary, pursuant to the Woodrow Chrisman Blood Safety Act ([place] Health and Safety Code # 1645, as amended). I attest that I re-evaluated the patient just prior to the surgery and that there has been no change in the patient's H&P, except as documented below: Natanael Tan Apr 09, 2020 09:45
[2020-04-09] MEDS ORDERED: Midazolam 2mg/2ml Inj ONE (09:57)
[2020-04-09] MEDS ORDERED: NS Irrig 1000ml IRRIG ONE (11:30)
--- NOTE | 2020-04-09 13:09 | Immediate Post-Op Evaluation ---
Immediate Post-Op Evalulation Immediate Post-Op Evalulation Procedure: ex lap Date of Evaluation: Apr 09, 2020 Time of Evaluation: 13:08 IV Fluids: 2000 Blood Products: 0 Estimated Blood Loss: 50 Urinary Output: 50 Blood Pressure Systolic: 128 Blood Pressure Diastolic: 74 Pulse Rate: 82 Respiratory Rate: 14 O2 Sat by Pulse Oximetry: 100 Temperature (Fahrenheit): 98.1 Nausea: No Vomiting: No Complications none Patient Status: awake, reacts, patent Hydration Status: adequate Drug: zosyn Given Within 1 Hr of Incision: Yes Time Given: 10:40 Queenie Mello CRNA Apr 09, 2020 13:09
--- NOTE | 2020-04-09 13:11 | Anethesia Preoperative Eval ---
Anesthesia Pre-op PMH/ROS General Date of Evaluation: Apr 09, 2020 Time of Evaluation: 10:30 Anesthesiologist: armin ASA Score: ASA 3 Mallampati Score Class I : Soft palate, uvula, fauces, pillars visible Class II: Soft palate, uvula, fauces visible Class III: Soft palate, base of uvula visible Class IV: Only hard plate visible Mallampati Classification: Class II Surgeon: jeremiah Diagnosis: perf bowel Surgical Procedure: ex lap Anesthesia History: none Social History: current smoker Family History: no anesthesia problems Allergies: Coded Allergies: No Known Allergies (Unverified , 08/06/17) Medications: see eMAR Patient NPO?: Yes NPO Date: Apr 09, 2020 NPO Time: 00:01 Past Medical History Cardiovascular: Reports: HTN; Denies: CAD, CT, valve dz, arrhythmia, other Pulmonary: Denies: asthma, COPD, YELENA, other Gastrointestinal/Genitourinary: Denies: GERD, CRI, ESRD, other Neurologic/Psychiatric: Denies: dementia, CVA, depression/anxiety, TIA, other Endocrine: Denies: DM, hypothyroidism, steroids, other HEENT: Denies: cataract (L), cataract (R), glaucoma, MECHOOPDA (L), MECHOOPDA (R), other Hematology/Immune: Reports: anemia; Denies: DVT, bleeding disorder, other Musculoskeletal/Integumentary: Denies: OA, RA, DJD, DDD, edema, other Other: other - substance abuse PSxH Narrative: hysterectomy Anesthesia Pre-op Phys. Exam Physician Exam Last Vital Signs Date Time Temp Pulse Resp B/P (MAP) Pulse Ox O2 Delivery O2 Flow Rate FiO2 04/09/20 09:00 Room Air 04/09/20 08:00 97.8 79 18 137/85 (102) 94 Constitutional: NAD Neurologic: CN 2-12 intact Cardiovascular: RRR Respiratory: CTA Gastrointestinal: S/NT/ND Airway Exam Mallampati Classification 2 Mallampati Score: Class II MO: full Teeth: missing, broken Dentures: upper Anesthesia Pre-op A/P Labs Hematology Test 04/09/20 00:50 White Blood Count 15.7 K/UL (4.8-10.8) H Red Blood Count 4.22 M/UL (4.20-5.40) Hemoglobin 12.5 G/DL (12.0-16.0) Hematocrit 36.6 % (37.0-47.0) L Mean Corpuscular Volume 87 FL (80-99) Mean Corpuscular Hemoglobin 29.5 PG (27.0-31.0) Mean Corpuscular Hemoglobin Concent 34.1 G/DL (32.0-36.0) Red Cell Distribution Width 14.3 % (11.6-14.8) Platelet Count 312 K/UL (150-450) Mean Platelet Volume 6.3 FL (6.5-10.1) L Neutrophils (%) (Auto) % (45.0-75.0) Lymphocytes (%) (Auto) % (20.0-45.0) Monocytes (%) (Auto) % (1.0-10.0) Eosinophils (%) (Auto) % (0.0-3.0) Basophils (%) (Auto) % (0.0-2.0) Chemistry Test 04/09/20 00:50 Sodium Level 143 MMOL/L (136-145) Potassium Level 3.9 MMOL/L (3.5-5.1) Chloride Level 106 MMOL/L (98-107) Carbon Dioxide Level 25 MMOL/L (21-32) Anion Gap 12 mmol/L (5-15) Blood Urea Nitrogen 24 mg/dL (7-18) H Creatinine 1.1 MG/DL (0.55-1.30) Estimat Glomerular Filtration Rate > 60 mL/min (>60) Glucose Level 133 MG/DL (74-106) H Calcium Level 8.7 MG/DL (8.5-10.1) Total Bilirubin 0.5 MG/DL (0.2-1.0) Aspartate Amino Transf (AST/SGOT) 23 U/L (15-37) Alanine Aminotransferase (ALT/SGPT) 25 U/L (12-78) Alkaline Phosphatase 78 U/L (46-116) Total Protein 7.1 G/DL (6.4-8.2) Albumin 3.7 G/DL (3.4-5.0) Globulin 3.4 g/dL Albumin/Globulin Ratio 1.1 (1.0-2.7) Lipase 268 U/L (73-393) Studies Pre-op Studies: EKG - SR Risk Assessment & Plan Assessment: stable Plan: general Status Change Before Surgery: No Pre-Antibiotics Drug: zosyn/flagyl Given Within 1 Hr of Incision: Yes Time Given: 10:40 Queenie Mello HAND PLEATER Apr 09, 2020 13:11
[2020-04-09] MEDS ORDERED: fentaNYL 100 mcg/2 mL IV PRN (13:15)
[2020-04-09] MEDS ORDERED: Metoclopramide 10mg/2ml Inj IVP PRN (13:15)
--- NOTE | 2020-04-09 16:54 | Brief Operative Note ---
Immediate Post Operative Note Operative Note Pre-op Diagnosis: acute abdomen, perforated viscus, distended gallbladder Procedure: ex lap antrectomy b 2 connection omentectomy JOLEEN washout Post-op Diagnosis: same as pre-op Surgeon: jeremiah Tobacco Drier Operator: megan Anesthesiologist: ahmet Anesthesia: general Specimen: yes Complications: none Condition: stable Fluids: see Estimated Blood Loss: minimal Drains: none Implant(s) used?: No Natanael Tan Apr 09, 2020 16:54
[2020-04-09] MEDS ORDERED: DiphenhydrAMINE 50mg/ml Inj IVP PRN (16:58)
[2020-04-09] MEDS: Morphine Sulfate 2mg/ml Inj(IV/IM USE ONLY) IVP PRN ×2 (17:48→23:14)
--- NOTE | 2020-04-09 18:15 | History and Physical Report ---
DATE OF ADMISSION: 04/09/2020 REASON FOR ADMISSION: Perforated bowel. HISTORY OF PRESENT ILLNESS: The patient is a 59-year-old female, history of cocaine abuse. The patient presents with abdominal pain. The patient notes the pain was acute. The patient was seen in the emergency room and underwent an abdominal pelvic CT notable for free air with suspicion for bowel perforation. The patient now admitted and is awaiting surgical intervention. PAST MEDICAL HISTORY: Essentially negative. MEDICATIONS: Reviewed. ALLERGIES: Reviewed. SOCIAL HISTORY: The patient has history of smoking, history of drug abuse, history of cocaine abuse. PHYSICAL EXAMINATION: GENERAL: An ill-appearing female. VITAL SIGNS: Reviewed, essentially stable at present. HEENT: Negative. NECK: Supple. LUNGS: Clear. CARDIAC: S1 and S2. Regular rate and rhythm without murmurs. ABDOMEN: Decreased bowel sounds and diffuse tenderness. EXTREMITIES: No cyanosis, clubbing, or edema. NEUROLOGIC: Grossly nonfocal. LABORATORY DATA: Reviewed. White cell count 15.7. Chemistries fairly negative. BUN 24. Urinalysis with 30 to 40 white cells. IMPRESSION: Free air, perforated viscus likely. RECOMMENDATION: NPO, empiric antibiotics, pain control, IV hydration, and await surgical intervention and repair, we will follow and assist medically postoperatively. Carlos Carrera M.D. DR: Greg JOB#: [id number] CC:
[2020-04-10] VITALS (7 sets, daily range): BP systolic 123–145; BP diastolic 71–84
--- NOTE | 2020-04-10 00:30 | Operative Note - Dictated ---
DATE OF OPERATION: 04/09/2020 PREOPERATIVE DIAGNOSES: 1. Perforated viscus. 2. Acute abdomen. POSTOPERATIVE DIAGNOSIS: Perforated duodenal ulcer with peritonitis. OPERATION PERFORMED: 1. Exploratory laparotomy. 2. Posterior gastric resection antrectomy. 3. Gastrojejunostomy, Billroth II. 4. Omentectomy. 5. Open lysis of adhesions. 6. Hemostasis of splenic hemorrhage. 7. Abdominal washout and closure. ATTENDING SURGEON: Natanael Tan M.D. CONFIGURATION MANAGEMENT ADMINISTRATOR SURGEON: Pati Rocha MD. ANESTHESIA: General MILL OPERATOR HELPER. ANESTHESIOLOGIST: Queenie Mello CRNA. ESTIMATED BLOOD LOSS: 50 mL. IV FLUIDS: Please see anesthesia records. COMPLICATIONS: None. DRAINS: None. COUNTS: Sponge, needle count correct x2. WOUND CLASSIFICATION: Class 3. SPECIMENS: 1. Gastric mass. 2. Antrectomy, partial gastrectomy. 3. Omentum. ANTIBIOTICS: The patient currently on scheduled IV Zosyn for acute active infectious process. INDICATIONS FOR PROCEDURE: This 59-year-old female, cocaine use, opiate use, presented to [facility] for evaluation of acute onset of abdominal pain with distended peritonitic abdomen identified to have leukocytosis and CT scan consistent with acute perforated viscus, likely ulcer disease. Given the above, surgery was indicated and recommended. I had a long discussion with the patient regards to surgical intervention including potential Abelino patch versus bowel resection and anastomosis as well as other potential findings given the patient's history of surgery including adhesions. After discussing operative detail planned surgery, consent was obtained. The patient was emergently booked for the operating room. OPERATIVE NOTE: The patient was taken to the operating room and placed on the operating table in supine position bilateral arms out. All bony prominences were well padded. SCDs were placed. Preoperative time-out had taken identifying the patient, procedure, options, operative staff, and surgical staff. General anesthesia was induced. The patient was intubated. The abdomen was clipped, prepped, and draped in standard surgical fashion. Kincaid catheter was inserted using sterile technique. A midline incision was made and carried down through this to the subcutaneous tissue to the fascia with electrocautery. Fascia was incised and the abdomen was entered without complication. Immediately upon entering the abdomen, there was significant amount of very foul murky fluid identified of which cultures were sent and fluid was evacuated. In further evaluation, it was then identified there was a first portion of the duodenum, pyloric perforation approximately 1 cm in size with active drainage. There was significant amount a rind around this like would to be a little bit more chronic than as anticipated acute onset within the last 24 hours as per patient. Systematic evaluation of the wound was then carried out and immediately was cleared. It was clearly identified that there was significant adhesions to the pelvis given the patient's prior hysterectomy. The omentum was not easily mobilized at all and it was densely adhesed to the pelvis with multiple fluid collection pockets within the pelvis around the omentum as well developing likely from the perforation. Extensive open lysis of adhesions performed, dissecting the omentum away from the pelvis. Once dissected clear some lysis adhesions of small bowel to the pelvis were performed until the pelvis could be completely inspected and fluid collections evacuated. At this time, the remaining abdomen was inspected. Right upper quadrant identified liver with a distended gallbladder without any significant stones. The gallbladder was soft and no signs of acute cholecystitis. Right upper quadrant and right lower quadrant were irrigated and suctioned clear. The pelvis was irrigated and suctioned cleared. Left lower quadrant was irrigated and suctioned, cleared. Left upper quadrant was evaluated, irrigated and suction cleared. At this time, given the above findings with omentum in the pelvis surrounding fluid collections, the location of the perforation as well as the patient's overall medical and social status, lack of followup drug use and the significant rind and inflammation around the duodenum with an open hole actively draining, it was decided to proceed with antrectomy because Abelino patch would not be feasible in this current situation with the way the omentum was seen and the condition of the abdomen. Decision was made to proceed with a partial gastrectomy and antrectomy and Billroth II. The dome of the gastrocolic ligament was identified, incised, and the omentum was from the transverse colon. The omentum was then dissected off the stomach and omentectomy was performed. Omentum was sent to pathology for review. The stomach was dissected out and the lesser pars flaccida was entered and dissected. Once the appropriate plane was identified, a proximal portion of division was noted on the gastric body and a linear 75 millimeter stapler was used and divided. Following this, the dissection was carried distally towards the duodenum past the area of the perforation. The first portion of the duodenum was identified that was otherwise healthy, viable, and dissected free and the linear DONNA stapler was used and this was divided. The specimen was sent off to pathology for review. The abdomen was then irrigated with copious amounts of warm normal saline in all 4 quadrants in the pelvis until clear. At this time, NG tube was placed into the gastric lumen by the anesthesiologist palpated to be in appropriate positioning. Given the laxity in the transverse colon, decision was made to proceed with a retrocolic mobilization of the small bowel for a gastrojejunostomy. A small window was made into the mesentery safely of the transverse colon. The ligament of Treitz was identified and brought through and the small bowel was brought through. At this time, the gastric body was grasped and we noticed a small mass in the fundus of the stomach anteriorly. This mass was excised using electrocautery and sent to pathology for frozen section and was identified to be a non-cancerous chronic lesion. Please see pathology report. Following this and evaluating left upper quadrant, we noted that there was a small area of hemorrhage from the inferior pole of the spleen, which required hemostasis, likely sustained during mobilization of the gastric body and antral resection. Electrocautery was used for hemostasis followed by placement of Surgicel and direct pressure. By the end of the procedure, complete hemostasis was noted and obtained from the splenic inferior pole hemorrhage. At this time, a posterior gastric retrocolic [id number] gastrostomy hand-sewn was created in two-layer fashion beginning with a posterior layer of interrupted 3-0 silks followed by incision of the stomach and incision in the small bowel and a 2-0 Vicryl running circumferential anastomosis and anterior Lembert imbricating 3-0 silk layer. Good patency and appropriate hemostasis and no leakage identified. At this time, the abdomen was reinspected. No other abnormalities were identified. Decision was made to proceed with closure. The fascia was reapproximated using 0 running PDS suture followed by cleansing of the subcutaneous tissue. Hemostasis with electrocautery and closure of the skin using surgical skin anitra and dressings were applied. The patient tolerated the procedure well, was extubated and taken to postanesthesia care unit in stable condition. Natanael Tan M.D. DR: Ema JOB#: [id number] CC:
[2020-04-10] MEDS: Piperacillin/Tazobactam 3.375 GM in NS 110 ML IVPB SCH ×3 (01:18→17:21)
[2020-04-10] MEDS: Morphine Sulfate 2mg/ml Inj(IV/IM USE ONLY) IVP PRN ×3 (04:27→15:07)
[2020-04-10 05:51] LABS: HEMATOCRIT 31.4 % (37.0-47.0); HEMOGLOBIN 10.5 G/DL (12.0-16.0); MEAN CORPUSCULAR VOLUME 87 FL (80-99); PLATELET COUNT 246 K/UL (150-450); RED BLOOD COUNT 3.62 M/UL (4.20-5.40); RED CELL DISTRIBUTION WIDTH 14.2 % (11.6-14.8); WHITE BLOOD COUNT 12.1 K/UL (4.8-10.8)
[2020-04-10 05:53] LABS: ANION GAP 8 mmol/L (5-15); BLOOD UREA NITROGEN 20 mg/dL (7-18); CALCIUM 7.7 MG/DL (8.5-10.1); CARBON DIOXIDE 25 MMOL/L (21-32); CHLORIDE 112 MMOL/L (98-107); CREATININE 0.9 MG/DL (0.55-1.30); POTASSIUM 3.9 MMOL/L (3.5-5.1); SODIUM 145 MMOL/L (136-145)
--- NOTE | 2020-04-10 06:46 | 48 Hour Post Anesthesia Eval ---
Post Anesthesia Evaluation Procedure: ex lap Date of Evaluation: Apr 10, 2020 Time of Evaluation: 05:55 Blood Pressure Systolic: 129 0: 72 Pulse Rate: 82 Respiratory Rate: 19 Temperature (Fahrenheit): 98.6 O2 Sat by Pulse Oximetry: 98 Airway: patent Nausea: No Vomiting: No Pain Intensity: 2 Hydration Status: adequate Cardiopulmonary Status: Stable Mental Status/LOC: patient returned to baseline Follow-up Care/Observations: 0 Post-Anesthesia Complications: 0 Follow-up care needed: N/A Gerald Mcknight MD Apr 10, 2020 06:46
[2020-04-10] MEDS: Pantoprazole Inj IVP SCH (08:22)
[2020-04-10] MEDS ORDERED: Rocuronium Bromide 100mg/10ml Inj IV ONE (09:00)
--- NOTE | 2020-04-10 09:13 | General Progress Note ---
Assessment/Plan Assessment/Plan: Perforated duodenal ulcer with peritonitis. PLAN antibiotics NPO pain control hydration surgical follow up impression, plan, and exam edited and reviewed in detail care discussed with RN Subjective Allergies: Coded Allergies: No Known Allergies (Unverified , 08/06/17) Subjective postop surgery reviewed Objective Last 24 Hour Vital Signs Date Time Temp Pulse Resp B/P (MAP) Pulse Ox O2 Delivery O2 Flow Rate FiO2 04/10/20 08:09 Room Air 04/10/20 08:00 98.2 74 18 137/75 (95) 98 04/10/20 06:46 82 19 98 04/10/20 05:13 99.0 04/10/20 04:00 98.6 82 19 129/72 (91) 98 04/10/20 00:00 99.0 80 20 123/79 (94) 98 04/09/20 21:11 Room Air 04/09/20 20:00 98.4 86 20 116/76 (89) 98 04/09/20 16:00 98.1 73 18 125/73 (90) 100 04/09/20 13:35 97.8 74 20 133/77 100 Nasal Cannula 3 04/09/20 13:20 75 17 139/75 100 Nasal Cannula 3 04/09/20 13:15 75 16 136/80 100 Nasal Cannula 3 04/09/20 13:09 82 14 100 04/09/20 13:05 74 15 134/80 100 Nasal Cannula 3 04/09/20 12:55 76 19 129/75 100 Simple Mask 6 04/09/20 12:50 80 18 129/78 100 Simple Mask 6 04/09/20 12:45 97.2 71 19 100/87 100 Simple Mask 6 Intake and Output 04/09/20 04/10/20 19:00 07:00 Intake Total 2427.5 ml Output Total 290 ml 400 ml Balance 2137.5 ml -400 ml IV Total 2427.5 ml Output Urine Total 170 ml 400 ml Gastric Drainage Total 70 ml Estimated Blood Loss 50 ml # Voids 1 Laboratory Tests 04/10/20 04:00: White Blood Count 12.1H, Red Blood Count 3.62L, Hemoglobin 10.5L, Hematocrit 31.4L, Mean Corpuscular Volume 87, Mean Corpuscular Hemoglobin 29.0, Mean Corpuscular Hemoglobin Concent 33.5, Red Cell Distribution Width 14.2, Platelet Count 246, Mean Platelet Volume 6.5, Neutrophils (%) (Auto) , Lymphocytes (%) ( Auto) , Monocytes (%) (Auto) , Eosinophils (%) (Auto) , Basophils (%) (Auto) , Sodium Level 145, Potassium Level 3.9, Chloride Level 112H, Carbon Dioxide Level 25, Anion Gap 8, Blood Urea Nitrogen 20H, Creatinine 0.9, Estimat Glomerular Filtration Rate > 60, Glucose Level 102, Calcium Level 7.7L Height (Feet): 5 Height (Inches): 8.00 Weight (Pounds): 127 Objective WDWN NAD clear breath sounds bilaterally without rhonchi or wheeze [id number] without MRG tender abdomen no CCE nonfocal Carlos Carrera MD Apr 10, 2020 09:13
--- NOTE | 2020-04-10 15:34 | General Progress Note ---
Progress Note Progress Note s/p OR 6/4 antrectomy B2 perf ulcer recovering pain no n/v/f labs noted npo iv fluids ng tube to suction low intermittent singh d/c tomorrow rx as written Natanael Tan Apr 10, 2020 15:34
[2020-04-10] MEDS: Morphine Sulfate 4mg/ml Inj (IV USE ONLY) IVP PRN ×2 (19:12→23:21)
[2020-04-11] MEDS: Piperacillin/Tazobactam 3.375 GM in NS 110 ML IVPB SCH ×3 (02:06→17:16)
[2020-04-11] MEDS: Morphine Sulfate 4mg/ml Inj (IV USE ONLY) IVP PRN ×5 (03:21→20:56)
[2020-04-11 04:00] VITALS: BP 150/81
[2020-04-11 08:00] VITALS: BP 155/70
--- NOTE | 2020-04-11 08:05 | General Progress Note ---
Assessment/Plan Assessment/Plan: Perforated duodenal ulcer with peritonitis. PLAN antibiotics NPO pain control hydration surgical follow up and advancement of diet impression, plan, and exam edited and reviewed in detail care discussed with RN Subjective Allergies: Coded Allergies: No Known Allergies (Unverified , 08/06/17) Subjective postop surgery reviewed Objective Last 24 Hour Vital Signs Date Time Temp Pulse Resp B/P (MAP) Pulse Ox O2 Delivery O2 Flow Rate FiO2 04/11/20 04:00 98.7 87 20 150/81 (104) 97 04/11/20 04:00 98.9 04/10/20 23:27 98.9 85 18 145/81 (102) 97 04/10/20 21:27 Room Air 04/10/20 20:07 99.0 86 18 133/71 (91) 98 04/10/20 16:03 99.3 85 18 141/77 (98) 96 04/10/20 12:00 98.1 74 18 142/84 (103) 99 04/10/20 08:09 Room Air Intake and Output 04/10/20 04/11/20 19:00 07:00 Intake Total 602.5 ml 777.5 ml Output Total 600 ml 500 ml Balance 2.5 ml 277.5 ml IV Total 602.5 ml 777.5 ml Output Urine Total 600 ml 500 ml # Voids 1 Height (Feet): 5 Height (Inches): 8.00 Weight (Pounds): 127 Objective WDWN NAD clear breath sounds bilaterally without rhonchi or wheeze [id number] without MRG tender abdomen no CCE nonfocal Carlos Carrera MD Apr 11, 2020 08:05
[2020-04-11] MEDS: Pantoprazole Inj IVP SCH ×2 (08:14→17:16)
[2020-04-11 09:07] LABS: HEMATOCRIT 28.8 % (37.0-47.0); HEMOGLOBIN 9.6 G/DL (12.0-16.0); MEAN CORPUSCULAR VOLUME 87 FL (80-99); PLATELET COUNT 260 K/UL (150-450); RED CELL DISTRIBUTION WIDTH 13.6 % (11.6-14.8); WHITE BLOOD COUNT 14.6 K/UL (4.8-10.8)
[2020-04-11 09:25] LABS: ALANINE AMINOTRANSFERASE 51 U/L (12-78); ALBUMIN 2.3 G/DL (3.4-5.0); ALBUMIN/GLOBULIN RATIO 0.6 (1.0-2.7); ALKALINE PHOSPHATASE 66 U/L (46-116); ANION GAP 15 mmol/L (5-15); ASPARTATE AMINO TRANSFERASE 36 U/L (15-37); BILIRUBIN,TOTAL 0.5 MG/DL (0.2-1.0); BLOOD UREA NITROGEN 13 mg/dL (7-18); CALCIUM 8.5 MG/DL (8.5-10.1); CARBON DIOXIDE 19 MMOL/L (21-32); CHLORIDE 112 MMOL/L (98-107); CREATININE 0.7 MG/DL (0.55-1.30); POTASSIUM 3.5 MMOL/L (3.5-5.1); SODIUM 146 MMOL/L (136-145)
[2020-04-11 12:00] VITALS: BP 151/85
--- NOTE | 2020-04-11 14:09 | Surgery Progress Note ---
Surgery Progress Note Subjective Procedure Performed ex lap antrectomy b 2 connection omentectomy JOLEEN washout Additional Comments leukocytosis anemia pain ng okay exam stable Objective Last 24 Hour Vital Signs Date Time Temp Pulse Resp B/P (MAP) Pulse Ox O2 Delivery O2 Flow Rate FiO2 04/11/20 12:00 98.1 83 20 151/85 (107) 94 04/11/20 08:00 Room Air 04/11/20 08:00 98.1 81 18 155/70 (98) 96 04/11/20 04:00 98.7 87 20 150/81 (104) 97 04/11/20 04:00 98.9 04/10/20 23:27 98.9 85 18 145/81 (102) 97 04/10/20 21:27 Room Air 04/10/20 20:07 99.0 86 18 133/71 (91) 98 04/10/20 16:03 99.3 85 18 141/77 (98) 96 I&O Intake and Output 04/10/20 04/11/20 19:00 07:00 Intake Total 602.5 ml 777.5 ml Output Total 600 ml 500 ml Balance 2.5 ml 277.5 ml IV Total 602.5 ml 777.5 ml Output Urine Total 600 ml 500 ml # Voids 1 Dressing: dry Wound: clean Cardiovascular: RSR Respiratory: clear Abdomen: soft, non-tender, non-distended, decreased bowel sounds Extremities: no tenderness, no cyanosis Laboratory Tests Test 04/11/20 08:45 White Blood Count 14.6 K/UL (4.8-10.8) H Red Blood Count 3.30 M/UL (4.20-5.40) L Hemoglobin 9.6 G/DL (12.0-16.0) L Hematocrit 28.8 % (37.0-47.0) L Mean Corpuscular Volume 87 FL (80-99) Mean Corpuscular Hemoglobin 29.0 PG (27.0-31.0) Mean Corpuscular Hemoglobin Concent 33.2 G/DL (32.0-36.0) Red Cell Distribution Width 13.6 % (11.6-14.8) Platelet Count 260 K/UL (150-450) Mean Platelet Volume 5.9 FL (6.5-10.1) L Neutrophils (%) (Auto) % (45.0-75.0) Lymphocytes (%) (Auto) % (20.0-45.0) Monocytes (%) (Auto) % (1.0-10.0) Eosinophils (%) (Auto) % (0.0-3.0) Basophils (%) (Auto) % (0.0-2.0) Differential Total Cells Counted 100 Neutrophils % (Manual) 86 % (45-75) H Lymphocytes % (Manual) 6 % (20-45) L Monocytes % (Manual) 6 % (1-10) Eosinophils % (Manual) 2 % (0-3) Basophils % (Manual) 0 % (0-2) Band Neutrophils 0 % (0-8) Platelet Estimate Adequate Platelet Morphology Normal Hypochromasia 2+ Anisocytosis 1+ Sodium Level 146 MMOL/L (136-145) H Potassium Level 3.5 MMOL/L (3.5-5.1) Chloride Level 112 MMOL/L (98-107) H Carbon Dioxide Level 19 MMOL/L (21-32) L Anion Gap 15 mmol/L (5-15) Blood Urea Nitrogen 13 mg/dL (7-18) Creatinine 0.7 MG/DL (0.55-1.30) Estimat Glomerular Filtration Rate > 60 mL/min (>60) Glucose Level 69 MG/DL (74-106) L Calcium Level 8.5 MG/DL (8.5-10.1) Total Bilirubin 0.5 MG/DL (0.2-1.0) Aspartate Amino Transf (AST/SGOT) 36 U/L (15-37) Alanine Aminotransferase (ALT/SGPT) 51 U/L (12-78) Alkaline Phosphatase 66 U/L (46-116) Total Protein 6.0 G/DL (6.4-8.2) L Albumin 2.3 G/DL (3.4-5.0) L Globulin 3.7 g/dL Albumin/Globulin Ratio 0.6 (1.0-2.7) L Plan Problems: (1) Duodenal ulcer Assessment & Plan: 1. Multiple foci of free air in the abdomen. Mild volume of mildly dense free fluid. Suspicious for bowel perforation. Exact source is not definitively identified. However the duodenum appears somewhat heterogeneous and may be a potential source. 2. Distended gallbladder and dilated CBD. Recommend right upper quadrant ultrasound. 3. Incidental note of asymmetrically more dense left breast tissue which is only partially visualized. Correlate with outpatient mammography/ultrasound. (2) Cocaine abuse (3) Syncope (4) UTI (urinary tract infection) (5) Encounter for removal of sutures (6) COPD exacerbation (7) Perforated small intestine Assessment & Plan: 59F acute abdominal pain C Twith free air foci and fluid abd distended, tender generalized leukocytosis dong well post op npo iv fluids iv abx ppi ng tube activity as tolerated Natanael Tan Apr 11, 2020 14:09
[2020-04-11 16:00] VITALS: BP 153/89
[2020-04-11 20:00] VITALS: BP 136/94
[2020-04-12] VITALS (7 sets, daily range): BP systolic 129–179; BP diastolic 75–94
[2020-04-12] MEDS: Morphine Sulfate 4mg/ml Inj (IV USE ONLY) IVP PRN ×6 (00:56→21:31)
[2020-04-12] MEDS: Piperacillin/Tazobactam 3.375 GM in NS 110 ML IVPB SCH ×3 (01:36→17:18)
[2020-04-12 07:30] LABS: BASOPHILS % (AUTO) 0.5 % (0.0-2.0); EOSINOPHILS % (AUTO) 2.4 % (0.0-3.0); HEMATOCRIT 28.6 % (37.0-47.0); HEMOGLOBIN 9.5 G/DL (12.0-16.0); LYMPHOCYTES % (AUTO) 6.8 % (20.0-45.0); MEAN CORPUSCULAR VOLUME 86 FL (80-99); MONOCYTES % (AUTO) 6.9 % (1.0-10.0); NEUTROPHILS % (AUTO) 83.5 % (45.0-75.0); PLATELET COUNT 288 K/UL (150-450); RED BLOOD COUNT 3.32 M/UL (4.20-5.40); RED CELL DISTRIBUTION WIDTH 13.7 % (11.6-14.8); WHITE BLOOD COUNT 14.3 K/UL (4.8-10.8)
[2020-04-12 07:47] LABS: ALANINE AMINOTRANSFERASE 34 U/L (12-78); ALBUMIN 2.1 G/DL (3.4-5.0); ALBUMIN/GLOBULIN RATIO 0.6 (1.0-2.7); ALKALINE PHOSPHATASE 62 U/L (46-116); AMYLASE 67 U/L (25-115); ANION GAP 16 mmol/L (5-15); ASPARTATE AMINO TRANSFERASE 24 U/L (15-37); BILIRUBIN,TOTAL 0.4 MG/DL (0.2-1.0); BLOOD UREA NITROGEN 13 mg/dL (7-18); CALCIUM 8.9 MG/DL (8.5-10.1); CARBON DIOXIDE 19 MMOL/L (21-32); CHLORIDE 113 MMOL/L (98-107); CREATININE 0.7 MG/DL (0.55-1.30); POTASSIUM 3.5 MMOL/L (3.5-5.1); SODIUM 148 MMOL/L (136-145)
[2020-04-12] MEDS: Pantoprazole Inj IVP SCH ×2 (08:54→17:18)
--- NOTE | 2020-04-12 09:02 | General Progress Note ---
Assessment/Plan Assessment/Plan: Perforated duodenal ulcer with peritonitis. + staph + caleb PLAN antibiotics add vanco and flucon obtain ID eval NPO pain control hydration surgical follow up and advancement of diet impression, plan, and exam edited and reviewed in detail care discussed with RN Subjective Allergies: Coded Allergies: No Known Allergies (Unverified , 08/06/17) Subjective postop surgery reviewed labs suggest significant infection Objective Last 24 Hour Vital Signs Date Time Temp Pulse Resp B/P (MAP) Pulse Ox O2 Delivery O2 Flow Rate FiO2 04/12/20 08:37 Room Air 04/12/20 08:00 98.4 69 17 158/94 (115) 97 04/12/20 04:00 98.2 74 18 148/75 (99) 96 04/12/20 00:00 97.8 78 18 129/88 (102) 96 04/11/20 21:00 Room Air 04/11/20 20:00 97.2 83 18 136/94 (108) 95 04/11/20 16:00 97.9 80 20 153/89 (110) 96 04/11/20 12:00 98.1 83 20 151/85 (107) 94 Intake and Output 04/11/20 04/12/20 19:00 07:00 Intake Total 705.0 ml 705.0 ml Output Total 50 ml 1050 ml Balance 655.0 ml -345.0 ml IV Total 705.0 ml 705.0 ml Output Urine Total 750 ml Gastric Drainage Total 50 ml 300 ml Laboratory Tests 04/12/20 06:50: White Blood Count 14.3H, Red Blood Count 3.32L, Hemoglobin 9.5L, Hematocrit 28.6L, Mean Corpuscular Volume 86, Mean Corpuscular Hemoglobin 28.6, Mean Corpuscular Hemoglobin Concent 33.3, Red Cell Distribution Width 13.7, Platelet Count 288, Mean Platelet Volume 5.6L, Neutrophils (%) (Auto) 83.5H, Lymphocytes (%) (Auto) 6.8L, Monocytes (%) (Auto) 6.9, Eosinophils (%) (Auto) 2.4, Basophils (%) (Auto) 0.5, Erythrocyte Sedimentation Rate [Pending], Sodium Level 148H, Potassium Level 3.5, Chloride Level 113H, Carbon Dioxide Level 19L, Anion Gap 16H, Blood Urea Nitrogen 13, Creatinine 0.7, Estimat Glomerular Filtration Rate > 60, Glucose Level 88, Calcium Level 8.9, Total Bilirubin 0.4, Aspartate Amino Transf (AST/SGOT) 24, Alanine Aminotransferase (ALT/SGPT) 34, Alkaline Phosphatase 62, C-Reactive Protein, Quantitative 33.1H, Total Protein 5.9L, Albumin 2.1L, Globulin 3.8, Albumin/Globulin Ratio 0.6L, Amylase Level 67 , Lipase 273 Height (Feet): 5 Height (Inches): 8.00 Weight (Pounds): 127 Objective WDWN NAD clear breath sounds bilaterally without rhonchi or wheeze [id number] without MRG tender abdomen no CCE nonfocal Carlos Carrera MD Apr 12, 2020 09:02
[2020-04-12] MEDS ORDERED: Vancomycin 1gm in D5W 275ml IVPB ONE ×2 (11:00→13:00)
[2020-04-12] MEDS: Vancomycin 750mg/D5W 275ml IVPB SCH ×2 (22:02)
--- NOTE | 2020-04-12 23:26 | CDS Physician Query ---
Clarification is required for compliance, coding accuracy, and to reflect severity of illness for this patient Dear Dr. Carlos Carrera M.D. Date: 04/12/2020 Clinical Documentation Statement: "59-year-old female, history of cocaine abuse. The patient presents with abdominal pain. The patient notes the pain was acute. " [ Carlos Benítez MD 04/10/20] Assessment: Perforated duodenal ulcer with peritonitis. Clinical Finding Show: Vitals (04/09): T97.2F, Pulse 86, RR 23, BP112/80 LAB (04/09) : Hemat; WBC 15.7 Chem: Glucose 133, Urines: Ur.bacteria "Many", Ur. Leuk Elysia 3+ Microbiology (04/09): URINE CULTURE MIXED UROGENITAL CONTAMINANTS, COLONY COUNT : 10,000 - 20,000 CFU/M Abdominal Fluid: STAPHYLOCOCCUS AUREUS - MRSAGROWTH: <1+ SANDRA TROPICALIS - GROWTH: 1+ Medication: Piperacilin IV (04/09-04/16), Vancomycin IV ( 04/12-04/17), Fluconazole IV ( 04/12-04/19) According to the clinical indications above, please indicate below the condition PHYSICIAN RESPONSE: Sepsis SIRS SIRS with organ dysfunction Septic Shock Not applicable x Other: Present on Admission: Yes x No Clinically Undetermined Physician signature Date Please also document in your Progress Notes and/or Discharge Summary and indicate if the condition was present on admission. JANUSZ
[2020-04-13] VITALS: BP 176/86
[2020-04-13] MEDS: Piperacillin/Tazobactam 3.375 GM in NS 110 ML IVPB SCH ×3 (01:40→17:09)
[2020-04-13] MEDS: Morphine Sulfate 4mg/ml Inj (IV USE ONLY) IVP PRN ×5 (01:40→21:09)
[2020-04-13 04:00] VITALS: BP 169/89
[2020-04-13 07:10] LABS: BASOPHILS % (AUTO) 0.6 % (0.0-2.0); EOSINOPHILS % (AUTO) 3.3 % (0.0-3.0); HEMATOCRIT 28.3 % (37.0-47.0); HEMOGLOBIN 9.6 G/DL (12.0-16.0); MEAN CORPUSCULAR VOLUME 85 FL (80-99); MONOCYTES % (AUTO) 10.3 % (1.0-10.0); NEUTROPHILS % (AUTO) 72.9 % (45.0-75.0); PLATELET COUNT 298 K/UL (150-450); RED BLOOD COUNT 3.33 M/UL (4.20-5.40); RED CELL DISTRIBUTION WIDTH 13.2 % (11.6-14.8)
[2020-04-13 07:17] LABS: ANION GAP 13 mmol/L (5-15); BLOOD UREA NITROGEN 7 mg/dL (7-18); CALCIUM 8.9 MG/DL (8.5-10.1); CARBON DIOXIDE 25 MMOL/L (21-32); CHLORIDE 106 MMOL/L (98-107); CREATININE 0.7 MG/DL (0.55-1.30); POTASSIUM 3.3 MMOL/L (3.5-5.1); SODIUM 144 MMOL/L (136-145)
[2020-04-13 08:00] VITALS: BP 170/89
--- NOTE | 2020-04-13 08:16 | General Progress Note ---
Assessment/Plan Assessment/Plan: Perforated duodenal ulcer with peritonitis. + staph + caleb PLAN antibiotics on vanco and flucon await ID eval NPO and advance per surgery pain control hydration surgical follow up impression, plan, and exam edited and reviewed in detail care discussed with RN Subjective Allergies: Coded Allergies: No Known Allergies (Unverified , 08/06/17) Subjective postop surgery reviewed awaiting ID eval Objective Last 24 Hour Vital Signs Date Time Temp Pulse Resp B/P (MAP) Pulse Ox O2 Delivery O2 Flow Rate FiO2 04/13/20 06:31 98.1 04/13/20 04:00 98.3 89 19 169/89 (115) 95 04/13/20 00:00 98.1 60 19 176/86 (116) 97 04/12/20 21:00 Room Air 04/12/20 20:00 98.1 68 18 150/85 (106) 97 04/12/20 17:00 158/88 (111) 04/12/20 16:49 97.1 64 18 179/80 (113) 96 04/12/20 12:00 98.6 67 18 142/89 (106) 98 04/12/20 08:37 Room Air Intake and Output 04/12/20 04/13/20 19:00 07:00 Intake Total 1137.500 ml 1476.666 ml Output Total 220 ml 1170 ml Balance 917.500 ml 306.666 ml IV Total 1137.500 ml 1476.666 ml Output Urine Total 1000 ml Gastric Drainage Total 220 ml 170 ml Laboratory Tests 04/13/20 05:10: White Blood Count 11.0H, Red Blood Count 3.33L, Hemoglobin 9.6L, Hematocrit 28.3L, Mean Corpuscular Volume 85, Mean Corpuscular Hemoglobin 28.9, Mean Corpuscular Hemoglobin Concent 34.0, Red Cell Distribution Width 13.2, Platelet Count 298, Mean Platelet Volume 5.7L, Neutrophils (%) (Auto) 72.9, Lymphocytes ( %) (Auto) 13.0L, Monocytes (%) (Auto) 10.3H, Eosinophils (%) (Auto) 3.3H, Basophils (%) (Auto) 0.6, Sodium Level 144, Potassium Level 3.3L, Chloride Level 106, Carbon Dioxide Level 25, Anion Gap 13, Blood Urea Nitrogen 7, Creatinine 0.7, Estimat Glomerular Filtration Rate > 60, Glucose Level 95, Calcium Level 8.9 Height (Feet): 5 Height (Inches): 8.00 Weight (Pounds): 127 Objective WDWN NAD clear breath sounds bilaterally without rhonchi or wheeze [id number] without MRG tender abdomen no CCE nonfocal Carlos Carrera MD Apr 13, 2020 08:16
[2020-04-13] MEDS: Pantoprazole Inj IVP SCH ×2 (08:44→17:10)
[2020-04-13] MEDS: Vancomycin 750mg/D5W 275ml IVPB SCH ×4 (11:00→23:11)
--- NOTE | 2020-04-13 11:50 | Surgery Progress Note ---
Surgery Progress Note Subjective Procedure Performed ex lap antrectomy b 2 connection omentectomy JOLEEN washout Symptoms: improved, pain decreased Objective Last 24 Hour Vital Signs Date Time Temp Pulse Resp B/P (MAP) Pulse Ox O2 Delivery O2 Flow Rate FiO2 04/13/20 09:00 Room Air 04/13/20 08:00 98.1 56 18 170/89 (116) 97 04/13/20 06:31 98.1 04/13/20 04:00 98.3 89 19 169/89 (115) 95 04/13/20 00:00 98.1 60 19 176/86 (116) 97 04/12/20 21:00 Room Air 04/12/20 20:00 98.1 68 18 150/85 (106) 97 04/12/20 17:00 158/88 (111) 04/12/20 16:49 97.1 64 18 179/80 (113) 96 04/12/20 12:00 98.6 67 18 142/89 (106) 98 I&O Intake and Output 04/12/20 04/13/20 19:00 07:00 Intake Total 1137.500 ml 1476.666 ml Output Total 220 ml 1170 ml Balance 917.500 ml 306.666 ml IV Total 1137.500 ml 1476.666 ml Output Urine Total 1000 ml Gastric Drainage Total 220 ml 170 ml Dressing: dry Wound: clean Cardiovascular: RSR Respiratory: clear Abdomen: soft, flat, non-tender, present bowel sounds, non-distended Extremities: no edema, no tenderness, no cyanosis Laboratory Tests Test 04/13/20 05:10 White Blood Count 11.0 K/UL (4.8-10.8) H Red Blood Count 3.33 M/UL (4.20-5.40) L Hemoglobin 9.6 G/DL (12.0-16.0) L Hematocrit 28.3 % (37.0-47.0) L Mean Corpuscular Volume 85 FL (80-99) Mean Corpuscular Hemoglobin 28.9 PG (27.0-31.0) Mean Corpuscular Hemoglobin Concent 34.0 G/DL (32.0-36.0) Red Cell Distribution Width 13.2 % (11.6-14.8) Platelet Count 298 K/UL (150-450) Mean Platelet Volume 5.7 FL (6.5-10.1) L Neutrophils (%) (Auto) 72.9 % (45.0-75.0) Lymphocytes (%) (Auto) 13.0 % (20.0-45.0) L Monocytes (%) (Auto) 10.3 % (1.0-10.0) H Eosinophils (%) (Auto) 3.3 % (0.0-3.0) H Basophils (%) (Auto) 0.6 % (0.0-2.0) Sodium Level 144 MMOL/L (136-145) Potassium Level 3.3 MMOL/L (3.5-5.1) L Chloride Level 106 MMOL/L (98-107) Carbon Dioxide Level 25 MMOL/L (21-32) Anion Gap 13 mmol/L (5-15) Blood Urea Nitrogen 7 mg/dL (7-18) Creatinine 0.7 MG/DL (0.55-1.30) Estimat Glomerular Filtration Rate > 60 mL/min (>60) Glucose Level 95 MG/DL (74-106) Calcium Level 8.9 MG/DL (8.5-10.1) Plan Problems: (1) Duodenal ulcer Assessment & Plan: 1. Multiple foci of free air in the abdomen. Mild volume of mildly dense free fluid. Suspicious for bowel perforation. Exact source is not definitively identified. However the duodenum appears somewhat heterogeneous and may be a potential source. 2. Distended gallbladder and dilated CBD. Recommend right upper quadrant ultrasound. 3. Incidental note of asymmetrically more dense left breast tissue which is only partially visualized. Correlate with outpatient mammography/ultrasound. (2) Cocaine abuse (3) Syncope (4) UTI (urinary tract infection) (5) Encounter for removal of sutures (6) COPD exacerbation (7) Perforated small intestine Assessment & Plan: 59F acute abdominal pain C Twith free air foci and fluid abd distended, tender generalized leukocytosis dong well post op npo iv fluids iv abx ppi ng tube activity as tolerated NG tube removed 04/13 ice chips Natanael Wade Apr 13, 2020 11:50
[2020-04-13 12:00] VITALS: BP 158/90
[2020-04-13] MEDS: Micafungin 100 MG in NS 110 ML IVPB SCH (12:35)
[2020-04-13 16:00] VITALS: BP 106/66
--- NOTE | 2020-04-13 17:30 | Consultation ---
DATE OF CONSULTATION: 04/13/2020 INFECTIOUS DISEASES CONSULTATION CONSULTING PHYSICIAN: Joe Martinez MD REFERRING PHYSICIAN: Carlos Carrera MD. REASON FOR CONSULTATION: Peritonitis. HISTORY OF PRESENTING ILLNESS: This is a 59-year-old lady with history of cocaine use, who came in with abdominal pain. She had a CT abdomen, which is suspicious for bowel perforation. She underwent exploratory laparotomy with gastrojejunostomy Billroth II with posterior gastric resection, omentectomy, lysis of adhesions. There was a perforated duodenal ulcer with peritonitis and an Infectious Diseases consultation has been obtained for antibiotics. PAST MEDICASL HISTORY: No history of diabetes, hypertension, asthma, or any medical issues. SOCIAL HISTORY: She has history of smoking and cocaine use. FAMILY HISTORY: Unknown. REVIEW OF SYSTEMS: Unable to obtain currently. MEDICATIONS: As an inpatient, she is on vancomycin, fluconazole, Protonix, morphine, Zofran, Benadryl, Zosyn. ALLERGIES: No known drug allergies. PHYSICAL EXAMINATION: VITAL SIGNS: Temperature of 98.1, T-max of 99, pulse of 56, respiratory rate 18, blood pressure 170/89, O2 saturation of 97% on room air. HEENT: Pupils equally reactive to light and accommodation. Mouth appears clean without thrush. NECK: Supple. No adenopathy. No JVD. CARDIOVASCULAR: Regular rate and rhythm. No murmurs. LUNGS: Clear to auscultation bilaterally. No crackles. No wheezes. ABDOMEN: Soft and nontender. No organomegaly. With some dressing. EXTREMITIES: No cyanosis, no clubbing, no edema. LABORATORY AND DIAGNOSTIC DATA: White count of 11, hemoglobin 9.6, hematocrit 28.3, MCV 85, platelet count 298,000 with neutrophils of 72%. Sodium 144, potassium 3.3, chloride 106, bicarb 25, BUN 7, creatinine 0.7, glucose 95, calcium 8.9. Total bilirubin 0.4. AST 24, ALT 34, alkaline phosphatase 62. C-reactive protein 33. Total protein 5.9, albumin 2.1. Amylase of 67, lipase of 273. UA showing 30 to 40 white cells. Abdominal culture is growing MRSA and Luanne tropicalis. COVID-19 test was negative. urine culture showing mixed urogenital contaminant. CT abdomen and pelvis showing free air in the abdomen suspicious for bowel perforation, distended gallbladder, dilated CBD ASSESSMENT: This is a 59-year-old lady with no significant past medical history with cocaine use, who comes in with abdominal pain and was found to have: 1. Duodenal ulcer perforation with peritonitis with MRSA and Luanne tropicalis. She has undergone surgery with lysis of adhesions, Billroth II gastrojejunostomy, gastric resection, antrectomy, omentectomy, hemostases of splenic hemorrhage, and washout. 2. Leukocytosis is improving. PLAN: 1. Continue vancomycin and Zosyn. 2. Discontinue fluconazole. 3. We will follow up cultures and adjust antibiotics accordingly. 4. We will start the patient on micafungin. 5. We will follow up cultures. I would like to thank, Dr. Carrera for this consultation. Joe Martinez M.D. DR: THERON JOB#: [id number] CC: Carlos Carrera MD.; Fax#: [phone]
[2020-04-13 20:00] VITALS: BP 158/86
[2020-04-14 00:12] VITALS: BP 164/85
[2020-04-14] MEDS: Piperacillin/Tazobactam 3.375 GM in NS 110 ML IVPB SCH ×3 (01:22→17:40)
[2020-04-14] MEDS: Morphine Sulfate 4mg/ml Inj (IV USE ONLY) IVP PRN ×3 (01:22→20:57)
[2020-04-14 04:02] VITALS: BP 149/73
[2020-04-14 08:00] VITALS: BP 180/92
[2020-04-14] MEDS: Pantoprazole Inj IVP SCH ×2 (08:13→17:40)
[2020-04-14] MEDS: Vancomycin 750mg/D5W 275ml IVPB SCH ×4 (08:13→15:40)
--- NOTE | 2020-04-14 08:45 | General Progress Note ---
Assessment/Plan Assessment/Plan: Perforated duodenal ulcer with peritonitis. + staph + caleb PLAN antibiotics on vanco and zosyn ID eval- micofungin added diet per surgery pain control hydration surgical follow up impression, plan, and exam edited and reviewed in detail care discussed with RN Subjective Allergies: Coded Allergies: No Known Allergies (Unverified , 08/06/17) Subjective postop surgery reviewed ice chips NGT out Objective Last 24 Hour Vital Signs Date Time Temp Pulse Resp B/P (MAP) Pulse Ox O2 Delivery O2 Flow Rate FiO2 04/14/20 04:02 97.9 58 20 149/73 (98) 95 04/14/20 01:52 97.7 04/14/20 00:12 97.7 59 22 164/85 (111) 96 04/13/20 20:59 Room Air 04/13/20 20:00 98.1 62 20 158/86 (110) 96 04/13/20 16:00 98.0 76 18 106/66 (79) 98 04/13/20 12:00 97.3 61 18 158/90 (112) 96 04/13/20 09:00 Room Air Intake and Output 04/13/20 04/14/20 19:00 07:00 Intake Total 1045.000 ml Output Total 575 ml 1300 ml Balance -575 ml -255.000 ml IV Total 795.000 ml Other 250 ml Output Urine Total 575 ml 1300 ml Laboratory Tests 04/13/20 22:10: Vancomycin Level Trough 6.6 Height (Feet): 5 Height (Inches): 8.00 Weight (Pounds): 127 Objective WDWN NAD clear breath sounds bilaterally without rhonchi or wheeze [id number] without MRG tender abdomen no CCE nonfocal Carlos Carrera MD Apr 14, 2020 08:45
--- NOTE | 2020-04-14 11:17 | Infectious Diseases Prog Note ---
"Assessment/Plan Assessment/Plan antibiotics : vancomycin iv, zosyn, micafungin A 1. 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 2. leucocytosis improving P 1. continue vancomycin iv, zosyn, micafungin 2. will follow up cultures Subjective Constitutional: Denies: fever, chills Respiratory: Denies: shortness of breath, dry cough Gastrointestinal/Abdominal: Denies: nausea, vomiting, diarrhea Musculoskeletal: Reports: pain - mild abdominal Allergies: Coded Allergies: No Known Allergies (Unverified , 08/06/17) Objective Vital Signs Last 24 Hour Vital Signs Date Time Temp Pulse Resp B/P (MAP) Pulse Ox O2 Delivery O2 Flow Rate FiO2 04/14/20 09:00 Room Air 04/14/20 08:00 97.9 60 20 180/92 (121) 98 04/14/20 04:02 97.9 58 20 149/73 (98) 95 04/14/20 01:52 97.7 04/14/20 00:12 97.7 59 22 164/85 (111) 96 04/13/20 20:59 Room Air 04/13/20 20:00 98.1 62 20 158/86 (110) 96 04/13/20 16:00 98.0 76 18 106/66 (79) 98 04/13/20 12:00 97.3 61 18 158/90 (112) 96 Height (Feet): 5 Height (Inches): 8.00 Weight (Pounds): 127 Respiratory/Chest: lungs clear Cardiovascular: normal rate, regular rhythm, no gallop/murmur Abdomen: other - wound clean Extremities: no edema Laboratory Tests Test 04/13/20 22:10 Vancomycin Level Trough 6.6 ug/mL (5.0-12.0) Current Medications Medications (Trade) Dose Ordered Sig/Con Route PRN Reason Start Time Stop Time Status Last Admin Dose Admin Diphenhydramine HCl (Benadryl) 12.5 mg Q6H PRN IVP Itching/Pruritis 04/09/20 16:58 05/09/20 16:57 Micafungin Sodium 100 mg/Sodium Chloride 110 ml @ 110 mls/hr Q24H IVPB 04/13/20 12:00 04/20/20 11:59 04/13/20 12:35 Morphine Sulfate (Morphine Sulfate) 2 mg Q4H PRN IVP pain scale 4-6 04/09/20 17:00 04/16/20 16:59 04/10/20 15:07 Morphine Sulfate (Morphine Sulfate) 4 mg Q4H PRN IVP pain score 7-10 04/09/20 17:00 04/16/20 16:59 04/14/20 06:50 Ondansetron HCl (Zofran) 4 mg Q6H PRN IVP Nausea & Vomiting 04/09/20 17:00 05/09/20 16:59 Pantoprazole (Protonix) 40 mg BID IVP 04/11/20 18:00 05/11/20 17:59 04/14/20 08:13 Piperacillin Sod/ Tazobactam Sod 3.375 gm/Sodium Chloride 110 ml @ 27.5 mls/hr Q8H IVPB 04/09/20 10:00 04/16/20 09:59 04/14/20 10:24 Sodium Chloride 1,000 ml @ 100 mls/hr Q10H IV 04/09/20 09:15 05/09/20 09:14 04/14/20 09:23 Vancomycin HCl (Vanco pharmacy to dose) 1 ea DAILY PRN MISC Per rx protocol 04/12/20 09:00 05/12/20 08:59 Vancomycin HCl 750 mg/Dextrose 275 ml @ 183.333 mls/hr Q8H IVPB 04/14/20 08:00 04/17/20 22:59 04/14/20 08:13 Joe Martinez MD Apr 14, 2020 11:17"
[2020-04-14] MEDS: Micafungin 100 MG in NS 110 ML IVPB SCH (11:33)
[2020-04-14 12:00] VITALS: BP 179/94
[2020-04-14 16:00] VITALS: BP 153/91
--- NOTE | 2020-04-14 17:21 | Surgery Progress Note ---
Surgery Progress Note Subjective Procedure Performed ex lap antrectomy b 2 connection omentectomy JOLEEN washout Symptoms: improved, tolerating diet Objective Last 24 Hour Vital Signs Date Time Temp Pulse Resp B/P (MAP) Pulse Ox O2 Delivery O2 Flow Rate FiO2 04/14/20 12:00 98.1 59 18 179/94 (122) 98 04/14/20 09:00 Room Air 04/14/20 08:00 97.9 60 20 180/92 (121) 98 04/14/20 04:02 97.9 58 20 149/73 (98) 95 04/14/20 01:52 97.7 04/14/20 00:12 97.7 59 22 164/85 (111) 96 04/13/20 20:59 Room Air 04/13/20 20:00 98.1 62 20 158/86 (110) 96 I&O Intake and Output 04/13/20 04/14/20 19:00 07:00 Intake Total 1045.000 ml Output Total 575 ml 1300 ml Balance -575 ml -255.000 ml IV Total 795.000 ml Other 250 ml Output Urine Total 575 ml 1300 ml Dressing: dry Wound: clean Cardiovascular: RSR Respiratory: clear Abdomen: soft, non-tender, present bowel sounds Extremities: no cyanosis Laboratory Tests Test 04/13/20 22:10 Vancomycin Level Trough 6.6 ug/mL (5.0-12.0) Plan Problems: (1) Duodenal ulcer Assessment & Plan: 1. Multiple foci of free air in the abdomen. Mild volume of mildly dense free fluid. Suspicious for bowel perforation. Exact source is not definitively identified. However the duodenum appears somewhat heterogeneous and may be a potential source. 2. Distended gallbladder and dilated CBD. Recommend right upper quadrant ultrasound. 3. Incidental note of asymmetrically more dense left breast tissue which is only partially visualized. Correlate with outpatient mammography/ultrasound. (2) Cocaine abuse (3) Syncope (4) UTI (urinary tract infection) (5) Encounter for removal of sutures (6) COPD exacerbation (7) Perforated small intestine Assessment & Plan: 59F acute abdominal pain C Twith free air foci and fluid abd distended, tender generalized leukocytosis dong well post op npo iv fluids iv abx ppi ng tube activity as tolerated NG tube removed 04/13 ice chips Natanael Wdae Apr 14, 2020 17:21
[2020-04-14 20:33] VITALS: BP 176/100
[2020-04-15] MEDS: Vancomycin 750mg/D5W 275ml IVPB SCH ×8 (00:01→23:24)
[2020-04-15 00:14] VITALS: BP 169/76
[2020-04-15] MEDS: Morphine Sulfate 4mg/ml Inj (IV USE ONLY) IVP PRN ×4 (01:42→23:03)
[2020-04-15] MEDS: Piperacillin/Tazobactam 3.375 GM in NS 110 ML IVPB SCH ×3 (01:42→18:00)
[2020-04-15 04:38] VITALS: BP 155/79
[2020-04-15 06:43] LABS: BASOPHILS % (AUTO) 0.7 % (0.0-2.0); EOSINOPHILS % (AUTO) 4.1 % (0.0-3.0); HEMATOCRIT 28.7 % (37.0-47.0); HEMOGLOBIN 9.8 G/DL (12.0-16.0); LYMPHOCYTES % (AUTO) 16.1 % (20.0-45.0); MEAN CORPUSCULAR VOLUME 84 FL (80-99); MONOCYTES % (AUTO) 11.7 % (1.0-10.0); NEUTROPHILS % (AUTO) 67.4 % (45.0-75.0); PLATELET COUNT 307 K/UL (150-450); RED BLOOD COUNT 3.41 M/UL (4.20-5.40)
[2020-04-15 07:10] LABS: ALANINE AMINOTRANSFERASE 19 U/L (12-78); ALBUMIN/GLOBULIN RATIO 0.5 (1.0-2.7); ALKALINE PHOSPHATASE 70 U/L (46-116); ANION GAP 10 mmol/L (5-15); ASPARTATE AMINO TRANSFERASE 22 U/L (15-37); BILIRUBIN,TOTAL 0.3 MG/DL (0.2-1.0); BLOOD UREA NITROGEN 11 mg/dL (7-18); CALCIUM 8.8 MG/DL (8.5-10.1); CARBON DIOXIDE 30 MMOL/L (21-32); CHLORIDE 104 MMOL/L (98-107); CREATININE 1.1 MG/DL (0.55-1.30); SODIUM 144 MMOL/L (136-145)
[2020-04-15 07:25] LABS: POTASSIUM 2.6 MMOL/L (3.5-5.1)
[2020-04-15] MEDS: Pantoprazole Inj IVP SCH ×2 (08:57→17:27)
[2020-04-15 09:00] VITALS: BP 155/79
[2020-04-15 12:00] VITALS: BP 151/94
[2020-04-15] MEDS ORDERED: Milk of Magnesia 30ml Ud ORAL SCH (15:30)
[2020-04-15 16:00] VITALS: BP 160/80
--- NOTE | 2020-04-15 16:30 | Infectious Diseases Prog Note ---
"Assessment/Plan Assessment/Plan A 1. 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 2. leucocytosis resolved 3. Cocaine abuse P 1. continue vancomycin iv, Zosyn, micafungin 2. will follow up cultures 3. HIV test Subjective ROS Limited/Unobtainable: No Constitutional: Reports: no symptoms Respiratory: Reports: no symptoms Gastrointestinal/Abdominal: Reports: no symptoms, other - tolerates clear liquid diet Genitourinary: Reports: no symptoms Allergies: Coded Allergies: No Known Allergies (Unverified , 08/06/17) Objective Vital Signs Last 24 Hour Vital Signs Date Time Temp Pulse Resp B/P (MAP) Pulse Ox O2 Delivery O2 Flow Rate FiO2 04/15/20 12:00 97.3 66 18 151/94 (113) 96 04/15/20 09:00 98.6 60 18 155/79 (104) 96 04/15/20 09:00 Room Air 04/15/20 07:21 98.6 04/15/20 04:38 98.6 60 18 155/79 (104) 96 04/15/20 00:14 98.4 57 16 169/76 (107) 96 04/14/20 20:56 176/100 04/14/20 20:35 Room Air 04/14/20 20:33 98.3 62 18 176/100 (125) 96 Height (Feet): 5 Height (Inches): 8.00 Weight (Pounds): 127 General Appearance: no acute distress HEENT: mucous membranes moist, thrush Respiratory/Chest: lungs clear Cardiovascular: normal rate Abdomen: soft, non tender, other - midline surgical anitra, no discharge Extremities: no edema Neurologic/Psychiatric: alert, oriented x 3, responsive Laboratory Tests Test 04/15/20 05:31 04/15/20 06:45 White Blood Count 10.0 K/UL (4.8-10.8) Red Blood Count 3.41 M/UL (4.20-5.40) L Hemoglobin 9.8 G/DL (12.0-16.0) L Hematocrit 28.7 % (37.0-47.0) L Mean Corpuscular Volume 84 FL (80-99) Mean Corpuscular Hemoglobin 28.6 PG (27.0-31.0) Mean Corpuscular Hemoglobin Concent 34.1 G/DL (32.0-36.0) Red Cell Distribution Width 13.0 % (11.6-14.8) Platelet Count 307 K/UL (150-450) Mean Platelet Volume 5.9 FL (6.5-10.1) L Neutrophils (%) (Auto) 67.4 % (45.0-75.0) Lymphocytes (%) (Auto) 16.1 % (20.0-45.0) L Monocytes (%) (Auto) 11.7 % (1.0-10.0) H Eosinophils (%) (Auto) 4.1 % (0.0-3.0) H Basophils (%) (Auto) 0.7 % (0.0-2.0) Sodium Level 144 MMOL/L (136-145) Potassium Level 2.6 MMOL/L (3.5-5.1) *L Chloride Level 104 MMOL/L (98-107) Carbon Dioxide Level 30 MMOL/L (21-32) Anion Gap 10 mmol/L (5-15) Blood Urea Nitrogen 11 mg/dL (7-18) Creatinine 1.1 MG/DL (0.55-1.30) Estimat Glomerular Filtration Rate > 60 mL/min (>60) Glucose Level 106 MG/DL (74-106) Calcium Level 8.8 MG/DL (8.5-10.1) Total Bilirubin 0.3 MG/DL (0.2-1.0) Aspartate Amino Transf (AST/SGOT) 22 U/L (15-37) Alanine Aminotransferase (ALT/SGPT) 19 U/L (12-78) Alkaline Phosphatase 70 U/L (46-116) Total Protein 6.0 G/DL (6.4-8.2) L Albumin 2.0 G/DL (3.4-5.0) L Globulin 4.0 g/dL Albumin/Globulin Ratio 0.5 (1.0-2.7) L Vancomycin Level Trough 18.3 ug/mL (5.0-12.0) H Current Medications Medications (Trade) Dose Ordered Sig/Con Route PRN Reason Start Time Stop Time Status Last Admin Dose Admin Clonidine HCl (Catapres Tab) 0.1 mg Q4H PRN ORAL For High Blood Pressure 04/14/20 20:45 07/13/20 20:44 04/14/20 20:56 Diphenhydramine HCl (Benadryl) 12.5 mg Q6H PRN IVP Itching/Pruritis 04/09/20 16:58 05/09/20 16:57 Magnesium Hydroxide (Mom) 30 ml ONCE ORAL 04/15/20 15:30 04/15/20 16:30 Micafungin Sodium 100 mg/Sodium Chloride 110 ml @ 110 mls/hr Q24H IVPB 04/13/20 12:00 04/20/20 11:59 04/14/20 11:33 Morphine Sulfate (Morphine Sulfate) 2 mg Q4H PRN IVP pain scale 4-6 04/09/20 17:00 04/16/20 16:59 04/10/20 15:07 Morphine Sulfate (Morphine Sulfate) 4 mg Q4H PRN IVP pain score 7-10 04/09/20 17:00 04/16/20 16:59 04/15/20 10:57 Ondansetron HCl (Zofran) 4 mg Q6H PRN IVP Nausea & Vomiting 04/09/20 17:00 05/09/20 16:59 Pantoprazole (Protonix) 40 mg BID IVP 04/11/20 18:00 05/11/20 17:59 04/15/20 08:57 Piperacillin Sod/ Tazobactam Sod 3.375 gm/Sodium Chloride 110 ml @ 27.5 mls/hr Q8H IVPB 04/09/20 10:00 04/16/20 09:59 04/15/20 10:17 Potassium Chloride (K-Dur) 40 meq DAILY ORAL 04/16/20 09:00 07/15/20 08:59 Sodium Chloride 1,000 ml @ 50 mls/hr Q20H IV 04/14/20 17:23 05/14/20 17:22 04/14/20 17:39 Vancomycin HCl (Vanco pharmacy to dose) 1 ea DAILY PRN MISC Per rx protocol 04/12/20 09:00 05/12/20 08:59 Vancomycin HCl 750 mg/Dextrose 275 ml @ 183.333 mls/hr Q8H IVPB 04/14/20 08:00 04/17/20 22:59 04/15/20 08:36 Sincere Cooper MD Apr 15, 2020 16:30"
[2020-04-15] MEDS: Micafungin 100 MG in NS 110 ML IVPB SCH (16:35)
--- NOTE | 2020-04-15 17:39 | General Progress Note ---
Assessment/Plan Assessment/Plan: Perforated duodenal ulcer with peritonitis. + staph + caleb PLAN antibiotics and antifungals per ID diet per surgery pain control hydration surgical follow up and dc planning impression, plan, and exam edited and reviewed in detail care discussed with RN Subjective Allergies: Coded Allergies: No Known Allergies (Unverified , 08/06/17) Subjective postop started on PO NGT out Objective Last 24 Hour Vital Signs Date Time Temp Pulse Resp B/P (MAP) Pulse Ox O2 Delivery O2 Flow Rate FiO2 04/15/20 12:00 97.3 66 18 151/94 (113) 96 04/15/20 09:00 98.6 60 18 155/79 (104) 96 04/15/20 09:00 Room Air 04/15/20 07:21 98.6 04/15/20 04:38 98.6 60 18 155/79 (104) 96 04/15/20 00:14 98.4 57 16 169/76 (107) 96 04/14/20 20:56 176/100 04/14/20 20:35 Room Air 04/14/20 20:33 98.3 62 18 176/100 (125) 96 Intake and Output 04/14/20 04/15/20 19:00 07:00 Intake Total 267.5 ml 927.500 ml Output Total 400 ml 750 ml Balance -132.5 ml 177.500 ml Intake Oral 240 ml 360 ml IV Total 27.5 ml 567.500 ml Output Urine Total 400 ml 750 ml # Voids 1 Laboratory Tests 04/15/20 05:31: White Blood Count 10.0, Red Blood Count 3.41L, Hemoglobin 9.8L, Hematocrit 28.7L , Mean Corpuscular Volume 84, Mean Corpuscular Hemoglobin 28.6, Mean Corpuscular Hemoglobin Concent 34.1, Red Cell Distribution Width 13.0, Platelet Count 307, Mean Platelet Volume 5.9L, Neutrophils (%) (Auto) 67.4, Lymphocytes ( %) (Auto) 16.1L, Monocytes (%) (Auto) 11.7H, Eosinophils (%) (Auto) 4.1H, Basophils (%) (Auto) 0.7, Sodium Level 144, Potassium Level 2.6*L, Chloride Level 104, Carbon Dioxide Level 30, Anion Gap 10, Blood Urea Nitrogen 11, Creatinine 1.1, Estimat Glomerular Filtration Rate > 60, Glucose Level 106, Calcium Level 8.8, Total Bilirubin 0.3, Aspartate Amino Transf (AST/SGOT) 22, Alanine Aminotransferase (ALT/SGPT) 19, Alkaline Phosphatase 70, Total Protein 6.0L, Albumin 2.0L, Globulin 4.0, Albumin/Globulin Ratio 0.5L 04/15/20 06:45: Vancomycin Level Trough 18.3H Height (Feet): 5 Height (Inches): 8.00 Weight (Pounds): 127 Objective WDWN NAD clear breath sounds bilaterally without rhonchi or wheeze [id number] without MRG tender abdomen no CCE nonfocal Carlos Carrera MD Apr 15, 2020 17:39
[2020-04-15 20:00] VITALS: BP 162/91
[2020-04-16] VITALS: BP 155/85
[2020-04-16] MEDS: Piperacillin/Tazobactam 3.375 GM in NS 110 ML IVPB SCH (01:52)
[2020-04-16] MEDS: Morphine Sulfate 4mg/ml Inj (IV USE ONLY) IVP PRN (03:15)
[2020-04-16 04:21] VITALS: BP 154/86
[2020-04-16 06:39] LABS: BASOPHILS % (AUTO) 0.9 % (0.0-2.0); EOSINOPHILS % (AUTO) 4.1 % (0.0-3.0); HEMATOCRIT 28.3 % (37.0-47.0); HEMOGLOBIN 9.6 G/DL (12.0-16.0); MEAN CORPUSCULAR VOLUME 85 FL (80-99); MONOCYTES % (AUTO) 10.9 % (1.0-10.0); NEUTROPHILS % (AUTO) 69.1 % (45.0-75.0); PLATELET COUNT 335 K/UL (150-450); RED BLOOD COUNT 3.34 M/UL (4.20-5.40); RED CELL DISTRIBUTION WIDTH 12.8 % (11.6-14.8); WHITE BLOOD COUNT 11.2 K/UL (4.8-10.8)
[2020-04-16 07:25] LABS: ALANINE AMINOTRANSFERASE 22 U/L (12-78); ALBUMIN/GLOBULIN RATIO 0.5 (1.0-2.7); ALKALINE PHOSPHATASE 72 U/L (46-116); ANION GAP 11 mmol/L (5-15); ASPARTATE AMINO TRANSFERASE 21 U/L (15-37); BILIRUBIN,TOTAL 0.4 MG/DL (0.2-1.0); BLOOD UREA NITROGEN 14 mg/dL (7-18); CALCIUM 8.8 MG/DL (8.5-10.1); CARBON DIOXIDE 26 MMOL/L (21-32); CHLORIDE 106 MMOL/L (98-107); CREATININE 1.7 MG/DL (0.55-1.30); POTASSIUM 3.4 MMOL/L (3.5-5.1); SODIUM 143 MMOL/L (136-145)
[2020-04-16 08:00] VITALS: BP 151/80
--- NOTE | 2020-04-16 08:46 | General Progress Note ---
Assessment/Plan Assessment/Plan: Perforated duodenal ulcer with peritonitis. + staph + caleb PLAN antibiotics and antifungals per ID diet per surgery pain control hydration surgical follow up and dc planning ID clearance needed check HIV impression, plan, and exam edited and reviewed in detail care discussed with RN Subjective Allergies: Coded Allergies: No Known Allergies (Unverified , 08/06/17) Subjective postop on PO ID noted Objective Last 24 Hour Vital Signs Date Time Temp Pulse Resp B/P (MAP) Pulse Ox O2 Delivery O2 Flow Rate FiO2 04/16/20 04:21 96.6 64 20 154/86 (108) 96 04/16/20 04:02 97.5 04/16/20 00:00 97.5 67 20 155/85 (108) 95 04/15/20 21:39 Room Air 04/15/20 20:00 97.9 67 20 162/91 (114) 95 04/15/20 16:00 98.2 69 18 160/80 (106) 97 04/15/20 12:00 97.3 66 18 151/94 (113) 96 04/15/20 09:00 98.6 60 18 155/79 (104) 96 04/15/20 09:00 Room Air Intake and Output 04/15/20 04/16/20 19:00 07:00 Intake Total 507.5 ml 1002.500 ml Output Total 600 ml 700 ml Balance -92.5 ml 302.500 ml Intake Oral 480 ml IV Total 27.5 ml 642.500 ml Other 360 ml Output Urine Total 600 ml 700 ml Laboratory Tests 04/16/20 05:45: White Blood Count 11.2H, Red Blood Count 3.34L, Hemoglobin 9.6L, Hematocrit 28.3L, Mean Corpuscular Volume 85, Mean Corpuscular Hemoglobin 28.8, Mean Corpuscular Hemoglobin Concent 33.9, Red Cell Distribution Width 12.8, Platelet Count 335, Mean Platelet Volume 5.6L, Neutrophils (%) (Auto) 69.1, Lymphocytes ( %) (Auto) 15.0L, Monocytes (%) (Auto) 10.9H, Eosinophils (%) (Auto) 4.1H, Basophils (%) (Auto) 0.9, Sodium Level 143, Potassium Level 3.4L, Chloride Level 106, Carbon Dioxide Level 26, Anion Gap 11, Blood Urea Nitrogen 14, Creatinine 1.7#H, Estimat Glomerular Filtration Rate 37.1, Glucose Level 117H, Calcium Level 8.8, Total Bilirubin 0.4, Aspartate Amino Transf (AST/SGOT) 21, Alanine Aminotransferase (ALT/SGPT) 22, Alkaline Phosphatase 72, Total Protein 6.0L, Albumin 2.0L, Globulin 4.0, Albumin/Globulin Ratio 0.5L, HIV (1&2) Antibody Rapid Negative Height (Feet): 5 Height (Inches): 8.00 Weight (Pounds): 127 Objective WDWN NAD clear breath sounds bilaterally without rhonchi or wheeze [id number] without MRG minimally tender abdomen no CCE nonfocal Carlos Carrera MD Apr 16, 2020 08:46
[2020-04-16] MEDS: Pantoprazole Inj IVP SCH (09:04)
[2020-04-16] MEDS: Vancomycin 750mg/D5W 275ml IVPB SCH ×4 (09:04→16:00)
[2020-04-16] MEDS: Micafungin 100 MG in NS 110 ML IVPB SCH (11:52)
[2020-04-16 12:00] VITALS: BP 148/82
[2020-04-16 16:00] VITALS: BP 142/78
--- NOTE | 2020-04-16 16:17 | Infectious Diseases Prog Note ---
"Assessment/Plan Assessment/Plan A 1. 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 2. leucocytosis resolved 3. Cocaine abuse P 1. continue vancomycin iv, & micafungin 2. will follow up cultures 3. HIV test negative Subjective ROS Limited/Unobtainable: No Constitutional: Reports: no symptoms Respiratory: Reports: no symptoms Cardiovascular: Reports: no symptoms Gastrointestinal/Abdominal: Reports: other - abdominal pain, no bowelmovement yet Genitourinary: Reports: no symptoms Allergies: Coded Allergies: No Known Allergies (Unverified , 08/06/17) Objective Vital Signs Last 24 Hour Vital Signs Date Time Temp Pulse Resp B/P (MAP) Pulse Ox O2 Delivery O2 Flow Rate FiO2 04/16/20 12:00 97.3 66 20 148/82 (104) 97 04/16/20 09:00 Room Air 04/16/20 08:00 97.8 99 18 151/80 (103) 96 04/16/20 04:21 96.6 64 20 154/86 (108) 96 04/16/20 04:02 97.5 04/16/20 00:00 97.5 67 20 155/85 (108) 95 04/15/20 21:39 Room Air 04/15/20 20:00 97.9 67 20 162/91 (114) 95 Height (Feet): 5 Height (Inches): 8.00 Weight (Pounds): 127 HEENT: mucous membranes moist, thrush Respiratory/Chest: lungs clear Cardiovascular: normal rate Abdomen: soft, non tender, other - midline surgical anitra Neurologic/Psychiatric: alert, oriented x 3, responsive Laboratory Tests Test 04/16/20 05:45 White Blood Count 11.2 K/UL (4.8-10.8) H Red Blood Count 3.34 M/UL (4.20-5.40) L Hemoglobin 9.6 G/DL (12.0-16.0) L Hematocrit 28.3 % (37.0-47.0) L Mean Corpuscular Volume 85 FL (80-99) Mean Corpuscular Hemoglobin 28.8 PG (27.0-31.0) Mean Corpuscular Hemoglobin Concent 33.9 G/DL (32.0-36.0) Red Cell Distribution Width 12.8 % (11.6-14.8) Platelet Count 335 K/UL (150-450) Mean Platelet Volume 5.6 FL (6.5-10.1) L Neutrophils (%) (Auto) 69.1 % (45.0-75.0) Lymphocytes (%) (Auto) 15.0 % (20.0-45.0) L Monocytes (%) (Auto) 10.9 % (1.0-10.0) H Eosinophils (%) (Auto) 4.1 % (0.0-3.0) H Basophils (%) (Auto) 0.9 % (0.0-2.0) Sodium Level 143 MMOL/L (136-145) Potassium Level 3.4 MMOL/L (3.5-5.1) L Chloride Level 106 MMOL/L (98-107) Carbon Dioxide Level 26 MMOL/L (21-32) Anion Gap 11 mmol/L (5-15) Blood Urea Nitrogen 14 mg/dL (7-18) Creatinine 1.7 MG/DL (0.55-1.30) #H Estimat Glomerular Filtration Rate 37.1 mL/min (>60) Glucose Level 117 MG/DL (74-106) H Calcium Level 8.8 MG/DL (8.5-10.1) Total Bilirubin 0.4 MG/DL (0.2-1.0) Aspartate Amino Transf (AST/SGOT) 21 U/L (15-37) Alanine Aminotransferase (ALT/SGPT) 22 U/L (12-78) Alkaline Phosphatase 72 U/L (46-116) Total Protein 6.0 G/DL (6.4-8.2) L Albumin 2.0 G/DL (3.4-5.0) L Globulin 4.0 g/dL Albumin/Globulin Ratio 0.5 (1.0-2.7) L HIV (1&2) Antibody Rapid Negative (NEGATIVE) Current Medications Medications (Trade) Dose Ordered Sig/Con Route PRN Reason Start Time Stop Time Status Last Admin Dose Admin Clonidine HCl (Catapres Tab) 0.1 mg Q4H PRN ORAL For High Blood Pressure 04/14/20 20:45 07/13/20 20:44 04/14/20 20:56 Diphenhydramine HCl (Benadryl) 12.5 mg Q6H PRN IVP Itching/Pruritis 04/09/20 16:58 05/09/20 16:57 Micafungin Sodium 100 mg/Sodium Chloride 110 ml @ 110 mls/hr Q24H IVPB 04/13/20 12:00 04/20/20 11:59 04/16/20 11:52 Ondansetron HCl (Zofran) 4 mg Q6H PRN IVP Nausea & Vomiting 04/09/20 17:00 05/09/20 16:59 Potassium Chloride (K-Dur) 40 meq DAILY ORAL 04/16/20 09:00 07/15/20 08:59 04/16/20 09:04 Sodium Chloride 1,000 ml @ 100 mls/hr Q10H IV 04/16/20 15:00 05/16/20 14:59 Vancomycin HCl (Vanco pharmacy to dose) 1 ea DAILY PRN MISC Per rx protocol 04/12/20 09:00 05/12/20 08:59 Sincere Cooper MD Apr 16, 2020 16:17"
[2020-04-16 20:00] VITALS: BP 158/76
[2020-04-16] MEDS: HYDROcodone/Acetamin 5/325 tab ORAL PRN (22:06)
[2020-04-17] VITALS: BP 163/65
[2020-04-17 04:00] VITALS: BP 157/70
[2020-04-17 07:05] LABS: ALANINE AMINOTRANSFERASE 20 U/L (12-78); ALBUMIN/GLOBULIN RATIO 0.5 (1.0-2.7); ALKALINE PHOSPHATASE 80 U/L (46-116); ANION GAP 11 mmol/L (5-15); ASPARTATE AMINO TRANSFERASE 22 U/L (15-37); BILIRUBIN,TOTAL 0.3 MG/DL (0.2-1.0); BLOOD UREA NITROGEN 13 mg/dL (7-18); CALCIUM 9.3 MG/DL (8.5-10.1); CARBON DIOXIDE 24 MMOL/L (21-32); CHLORIDE 107 MMOL/L (98-107); CREATININE 1.7 MG/DL (0.55-1.30); POTASSIUM 3.5 MMOL/L (3.5-5.1); SODIUM 142 MMOL/L (136-145)
[2020-04-17 07:17] LABS: BASOPHILS % (AUTO) 1.2 % (0.0-2.0); EOSINOPHILS % (AUTO) 3.7 % (0.0-3.0); HEMATOCRIT 30.2 % (37.0-47.0); HEMOGLOBIN 9.6 G/DL (12.0-16.0); LYMPHOCYTES % (AUTO) 19.3 % (20.0-45.0); MEAN CORPUSCULAR VOLUME 91 FL (80-99); MONOCYTES % (AUTO) 7.6 % (1.0-10.0); NEUTROPHILS % (AUTO) 68.2 % (45.0-75.0); PLATELET COUNT 319 K/UL (150-450); RED BLOOD COUNT 3.33 M/UL (4.20-5.40); WHITE BLOOD COUNT 10.9 K/UL (4.8-10.8)
[2020-04-17 08:00] VITALS: BP 144/76
--- NOTE | 2020-04-17 08:42 | General Progress Note ---
Assessment/Plan Assessment/Plan: Perforated duodenal ulcer with peritonitis. + staph + caleb renal insufficiency PLAN antibiotics and antifungals per ID HIV neg dc if cleared by surgery and ID impression, plan, and exam edited and reviewed in detail care discussed with RN Subjective Allergies: Coded Allergies: No Known Allergies (Unverified , 08/06/17) Subjective postop on PO ID noted Objective Last 24 Hour Vital Signs Date Time Temp Pulse Resp B/P (MAP) Pulse Ox O2 Delivery O2 Flow Rate FiO2 04/17/20 08:00 98.6 80 21 144/76 (98) 99 04/17/20 04:00 98.3 75 20 157/70 (99) 98 04/17/20 00:52 178/92 04/17/20 00:00 97.9 71 20 163/65 (97) 97 04/16/20 22:36 97.7 04/16/20 21:00 Room Air 04/16/20 20:00 98.1 75 20 158/76 (103) 98 04/16/20 16:00 97.7 73 20 142/78 (99) 97 04/16/20 12:00 97.3 66 20 148/82 (104) 97 04/16/20 09:00 Room Air Intake and Output 04/16/20 04/17/20 19:00 07:00 Intake Total 660 ml 510 ml Output Total 850 ml 1400 ml Balance -190 ml -890 ml Intake Oral 360 ml 250 ml IV Total 300 ml Other 260 ml Output Urine Total 850 ml 1400 ml Laboratory Tests 04/17/20 05:40: White Blood Count 10.9H, Red Blood Count 3.33L, Hemoglobin 9.6L, Hematocrit 30.2L, Mean Corpuscular Volume 91, Mean Corpuscular Hemoglobin 28.9, Mean Corpuscular Hemoglobin Concent 31.9L, Red Cell Distribution Width 13.0, Platelet Count 319, Mean Platelet Volume 6.4L, Neutrophils (%) (Auto) 68.2, Lymphocytes (%) (Auto) 19.3L, Monocytes (%) (Auto) 7.6, Eosinophils (%) (Auto) 3.7H, Basophils (%) (Auto) 1.2, Erythrocyte Sedimentation Rate [Pending], Sodium Level 142, Potassium Level 3.5, Chloride Level 107, Carbon Dioxide Level 24, Anion Gap 11, Blood Urea Nitrogen 13, Creatinine 1.7H, Estimat Glomerular Filtration Rate 37.1, Glucose Level 101, Calcium Level 9.3, Total Bilirubin 0.3 , Aspartate Amino Transf (AST/SGOT) 22, Alanine Aminotransferase (ALT/SGPT) 20, Alkaline Phosphatase 80, C-Reactive Protein, Quantitative 16.9H, Total Protein 6.2L, Albumin 2.0L, Globulin 4.2, Albumin/Globulin Ratio 0.5L, Random Vancomycin Level 21.5 Height (Feet): 5 Height (Inches): 8.00 Weight (Pounds): 127 Objective WDWN NAD clear breath sounds bilaterally without rhonchi or wheeze [id number] without MRG minimally tender abdomen no CCE nonfocal Carlos Carrera MD Apr 17, 2020 08:42
[2020-04-17] MEDS: HYDROcodone/Acetamin 5/325 tab ORAL PRN (09:46)
--- NOTE | 2020-04-17 11:26 | Infectious Diseases Prog Note ---
"Assessment/Plan Assessment/Plan antibiotics : vancomycin iv, micafungin A 1. 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 2. leucocytosis improving P 1. d/c vancomycin iv, micafungin 2. start and continue po doxycycline and fluconazole 4 more days 3. will follow up cultures Subjective Constitutional: Denies: fever, chills Respiratory: Denies: shortness of breath, dry cough Gastrointestinal/Abdominal: Denies: nausea, vomiting, diarrhea Neurologic: Reports: headache Musculoskeletal: Reports: pain Allergies: Coded Allergies: No Known Allergies (Unverified , 08/06/17) Objective Vital Signs Last 24 Hour Vital Signs Date Time Temp Pulse Resp B/P (MAP) Pulse Ox O2 Delivery O2 Flow Rate FiO2 04/17/20 09:00 Room Air 04/17/20 08:00 98.6 80 21 144/76 (98) 99 04/17/20 04:00 98.3 75 20 157/70 (99) 98 04/17/20 00:52 178/92 04/17/20 00:00 97.9 71 20 163/65 (97) 97 04/16/20 22:36 97.7 04/16/20 21:00 Room Air 04/16/20 20:00 98.1 75 20 158/76 (103) 98 04/16/20 16:00 97.7 73 20 142/78 (99) 97 04/16/20 12:00 97.3 66 20 148/82 (104) 97 Height (Feet): 5 Height (Inches): 8.00 Weight (Pounds): 127 Respiratory/Chest: lungs clear Cardiovascular: normal rate, regular rhythm, no gallop/murmur Abdomen: soft, non tender, other - wound clean Extremities: no edema Laboratory Tests Test 04/17/20 05:40 White Blood Count 10.9 K/UL (4.8-10.8) H Red Blood Count 3.33 M/UL (4.20-5.40) L Hemoglobin 9.6 G/DL (12.0-16.0) L Hematocrit 30.2 % (37.0-47.0) L Mean Corpuscular Volume 91 FL (80-99) Mean Corpuscular Hemoglobin 28.9 PG (27.0-31.0) Mean Corpuscular Hemoglobin Concent 31.9 G/DL (32.0-36.0) L Red Cell Distribution Width 13.0 % (11.6-14.8) Platelet Count 319 K/UL (150-450) Mean Platelet Volume 6.4 FL (6.5-10.1) L Neutrophils (%) (Auto) 68.2 % (45.0-75.0) Lymphocytes (%) (Auto) 19.3 % (20.0-45.0) L Monocytes (%) (Auto) 7.6 % (1.0-10.0) Eosinophils (%) (Auto) 3.7 % (0.0-3.0) H Basophils (%) (Auto) 1.2 % (0.0-2.0) Erythrocyte Sedimentation Rate 119 MM/HR (0-30) H Sodium Level 142 MMOL/L (136-145) Potassium Level 3.5 MMOL/L (3.5-5.1) Chloride Level 107 MMOL/L (98-107) Carbon Dioxide Level 24 MMOL/L (21-32) Anion Gap 11 mmol/L (5-15) Blood Urea Nitrogen 13 mg/dL (7-18) Creatinine 1.7 MG/DL (0.55-1.30) H Estimat Glomerular Filtration Rate 37.1 mL/min (>60) Glucose Level 101 MG/DL (74-106) Calcium Level 9.3 MG/DL (8.5-10.1) Total Bilirubin 0.3 MG/DL (0.2-1.0) Aspartate Amino Transf (AST/SGOT) 22 U/L (15-37) Alanine Aminotransferase (ALT/SGPT) 20 U/L (12-78) Alkaline Phosphatase 80 U/L (46-116) C-Reactive Protein, Quantitative 16.9 mg/dL (0.00-0.90) H Total Protein 6.2 G/DL (6.4-8.2) L Albumin 2.0 G/DL (3.4-5.0) L Globulin 4.2 g/dL Albumin/Globulin Ratio 0.5 (1.0-2.7) L Random Vancomycin Level 21.5 ug/mL Current Medications Medications (Trade) Dose Ordered Sig/Con Route PRN Reason Start Time Stop Time Status Last Admin Dose Admin Acetaminophen/ Hydrocodone Bitart ([place] 5/325) 1 tab Q4H PRN ORAL For Pain 04/16/20 21:45 04/23/20 21:44 04/17/20 09:46 Clonidine HCl (Catapres Tab) 0.1 mg Q4H PRN ORAL For High Blood Pressure 04/14/20 20:45 07/13/20 20:44 04/17/20 00:52 Diphenhydramine HCl (Benadryl) 12.5 mg Q6H PRN IVP Itching/Pruritis 04/09/20 16:58 05/09/20 16:57 Micafungin Sodium 100 mg/Sodium Chloride 110 ml @ 110 mls/hr Q24H IVPB 04/13/20 12:00 04/20/20 11:59 04/16/20 11:52 Ondansetron HCl (Zofran) 4 mg Q6H PRN IVP Nausea & Vomiting 04/09/20 17:00 05/09/20 16:59 Potassium Chloride (K-Dur) 40 meq DAILY ORAL 04/16/20 09:00 07/15/20 08:59 04/17/20 09:46 Sodium Chloride 1,000 ml @ 100 mls/hr Q10H IV 04/16/20 15:00 05/16/20 14:59 04/17/20 00:15 Vancomycin HCl ([facility]anco pharmacy to dose) 1 ea DAILY PRN MISC Per rx protocol 04/12/20 09:00 05/12/20 08:59 Joe Martinez MD Apr 17, 2020 11:26"
[2020-04-17] MEDS: Micafungin 100 MG in NS 110 ML IVPB SCH (11:43)
[2020-04-17 12:00] VITALS: BP 140/83
[2020-04-17] MEDS ORDERED: FLUCONAZOLE100 MG ORAL (15:21)
[2020-04-17] MEDS ORDERED: VIBRAMYCIN100 MG ORAL (15:21)
[2020-04-17] MEDS ORDERED: COLACE100 MG ORAL (15:57)
[2020-04-17] MEDS ORDERED: ACETAMINOPHEN-1 EAC1 ORAL (15:57)
[2020-04-17] MEDS ORDERED: PROTONIX40 MG ORAL (15:57)
--- NOTE | 2020-04-20 01:47 | Discharge Summary ---
Discharge Summary Discharge Summary _ DATE OF ADMISSION: 04/09/2020 DATE OF DISCHARGE: 04/17/2020 DISCHARGED BY: Dr. Carlos Carrera CONSULTANTS: Dr. Joe Tan BRIEF HOSPITAL COURSE: Patient is a 68-year-old female, with history of cocaine abuse. She presented to ED complaining of abdominal pain. Onset of pain was acute. Pain was diffuse in nature and 10 out of 10, worse with movement. She denied fever or chills. There was no nausea, vomiting or diarrhea. Upon evaluation at ED, blood work showed leukocytosis with WBC elevated to 15.7. Hemoglobin stable. Electrolytes normal. LFTs normal. Lipase was normal. CT of the abdomen and pelvis without contrast showed multiple foci of free air in the abdomen. Suspicious for bowel perforation. Exact source not clearly identified, however, duodenal appeared somewhat heterogeneous and may be a potential source. Dilated gallbladder and dilated CBD. Surgeon was consulted. On examination, abdomen was distended and had generalized tenderness. She was placed on n.p.o. She was started on IV fluids and IV antibiotics. She was then taken to the OR for exploration. Patient was found to have perforated duodenal ulcer with peritonitis. She underwent partial gastrectomy and antrectomy and Billroth II. The patient tolerated procedure well and was taken to postanesthesia care unit in stable condition. Postoperatively, she was continued on n.p.o. She was given pain control. She had an NG tube connected to low intermittent suction. Abdominal fluid culture showed growth of MRSA and Luanne. She was given IV vancomycin and fluconazole. Infectious disease specialist was consulted. Fluconazole was discontinued. Patient was given vancomycin and Zosyn. Micafungin was eventually added. NG tube was removed on 04/13/2020. She was started on ice chips. She was started on clear liquid diet the following day. Diet was advanced and was tolerating diet well. Leukocytosis improved. Potassium was low. He was given potassium supplementation. Patient was cleared for discharge. Antibiotics were changed to p.o. doxycycline and fluconazole. Advised to continue antibiotic treatment for 4 more days. Patient was eventually discharged home. FINAL DIAGNOSES: Perforated duodenal ulcer with peritonitis with MRSA and Luanne Status post exploratory laparotomy with gastric resection, antrectomy, Billroth II, omentectomy, lysis of adhesions on 04/09/2020 Renal insufficiency DISPOSITION: Patient was discharged home. DISCHARGE MEDICATIONS: Refer to Discharge Medication List. DISCHARGE INSTRUCTIONS: Follow-up in a week. I have been assigned to complete a discharge summary on this account, I was not involved with the patient's management.--HAYLEY Paige Jacqueline Robles NP Apr 20, 2020 01:47
== END 2020-04-17 17:07 | disposition home or self-care (01) | DRG 220 ==
LOC: EDBD 00:19 → EDUNIT# 00:19 → EMR 01:25 → EDBEDREQ 02:17 → 4E 04:10 → EDBEDREQ 04:11 → 4E 04-11 18:08
PROC: 0DBU0ZZ Excision of Omentum, Open Approach (ICD-10-PCS; 2020-04-09)
PROC: 0DN80ZZ Release Small Intestine, Open Approach (ICD-10-PCS; 2020-04-09)
PROC: 07QP0ZZ Repair Spleen, Open Approach (ICD-10-PCS; 2020-04-09)
PROC: 0D160ZA Bypass Stomach to Jejunum, Open Approach (ICD-10-PCS; 2020-04-09)
PROC: 0DB60ZZ Excision of Stomach, Open Approach (ICD-10-PCS; principal; 2020-04-09 10:00)
DX: K26.1 Acute duodenal ulcer with perforation (principal); K65.8 Other peritonitis; J44.1 Chronic obstructive pulmonary disease with (acute) exacerbation; F14.10 Cocaine abuse, uncomplicated; N39.0 Urinary tract infection, site not specified; D78.02 Intraoperative hemorrhage and hematoma of the spleen complicating other procedure; N28.9 Disorder of kidney and ureter, unspecified; B95.62 Methicillin resistant Staphylococcus aureus infection as the cause of diseases classified elsewhere
CPT/HCPCS: 36415; 74176; 80048; 80053; 80202; 80307; 81003; 82150; 83690; 85007; 85025; 85651; 86140; 86703; 87070; 87075; 87086; 87181; 87205; 94003; 94150; 96361; 96365; 96368; 96375; 99291; J2250; J2405; J2710; J2765; J7030; J8499